=== PATIENT | female | born 1945 | race African-American/Black ===

== ENCOUNTER 2017-05-15 09:59 | Emergency (ER) | payer MEDICARE, MEDICAID ==
[~2017-05-15] VITALS: Ht 167.6 cm; Wt 58.0 kg
[2017-05-15] MEDS ORDERED: HYDROCODONE/ACETAMINOPHEN 10/325MG TABLET PO ONE (12:00)
[2017-05-15] MEDS ORDERED: IBUPROFEN 600MG TABLET PO ONE (12:00)
[2017-05-15 13:50] VITALS: BP 123/72
== END 2017-05-15 13:54 | disposition home or self-care (01) ==
LOC: ER 12:10
DX: S29.012A Strain of muscle and tendon of back wall of thorax, initial encounter (principal); M85.80 Other specified disorders of bone density and structure, unspecified site; R03.0 Elevated blood-pressure reading, without diagnosis of hypertension; J45.909 Unspecified asthma, uncomplicated; W18.2XXA Fall in (into) shower or empty bathtub, initial encounter; Y93.E1 Activity, personal bathing and showering; Y92.091 Bathroom in other non-institutional residence as the place of occurrence of the external cause
CPT/HCPCS: 72070; 99284

== ENCOUNTER 2017-05-16 08:02 | Emergency (ER) | payer MEDICARE, MEDICAID ==
[~2017-05-16] VITALS: Ht 162.6 cm; Wt 55.0 kg
[2017-05-16] MEDS ORDERED: SODIUM CHLORIDE 0.9% 1,000 ML IV ONE (08:24)
[2017-05-16] MEDS ORDERED: ONDANSETRON HCL 4MG/2ML VIAL IV STA (08:24)
[2017-05-16] MEDS: MORPHINE SULFATE 4 MG/ML CPJ (NOT FOR IM USE) IV PRN ×2 (08:31→11:45)
[2017-05-16 08:49] LABS: CLARITY URINE CLEAR (CLEAR); COLOR URINE YELLOW (YELLOW); KETONES URINE 3+ (NEGATIVE); LEUKOCYTE ESTERASE URINE 2+ (NEGATIVE); NITRITE URINE NEGATIVE (NEGATIVE); OCCULT BLOOD URINE TRACE (NEGATIVE); PH URINE 6.5 (4.5-8.0); PROTEIN URINE NEGATIVE (NEGATIVE); SPECIFIC GRAVITY URINE 1.017 (1.005-1.030); UROBILINOGEN URINE 0.2 E.U./dL (0.2-1.0)
[2017-05-16 09:09] LABS: *AMPHETAMINES SCREEN URINE NEGATIVE (NEGATIVE); *BARBITURATES SCREEN URINE NEGATIVE (NEGATIVE); *BENZODIAZEPINES SCREEN URINE NEGATIVE (NEGATIVE); *COCAINE SCREEN URINE NEGATIVE (NEGATIVE); CANNABINOID URINE SCREEN NEGATIVE (NEGATIVE); METHADONE URINE SCREEN NEGATIVE (NEGATIVE); OPIATES URINE SCREEN PRESUMTIVE POSITIVE (NEGATIVE); PHENCYCLIDINE URINE SCREEN NEGATIVE (NEGATIVE)
[2017-05-16 09:13] LABS: BASOPHILS % 0.5 % (0.0-2.0); EOSINOPHILS % 0.5 % (0.0-5.0); HEMOGLOBIN. 15.8 g/dL (12.0-16.0); MEAN CORPUSCULAR HEMOGLOBIN 31.8 pg (28.0-32.0); MEAN CORPUSCULAR VOLUME 94.4 fL (81.0-99.0); MEAN PLATELET VOLUME 8.3 fl (7.4-10.4); MONOCYTES % 4.1 % (2.0-8.0); NEUTROPHILS % 83.9 % (40.0-76.0); PLATELET 199 x1000/uL (130-400); RED BLOOD CELL COUNT 4.98 mill/uL (4.2-5.4); RED CELL DISTRIBUTION WIDTH 13.7 % (11.6-14.6)
[2017-05-16 09:21] LABS: INR 1.1; PROTHROMBIN TIME 11.4 sec
[2017-05-16 09:25] LABS: CARBON DIOXIDE 26 mEq/L (21-32); CHLORIDE 104 mEq/L (98-107)
[2017-05-16] MEDS ORDERED: LEVOFLOXACIN 750MG PREMIX 150 ML IV ONE (11:15)
[2017-05-16 12:22] VITALS: BP 132/72
== END 2017-05-16 13:06 | disposition home or self-care (01) ==
LOC: ER 08:09
DX: N39.0 Urinary tract infection, site not specified (principal); R10.9 Unspecified abdominal pain; J44.9 Chronic obstructive pulmonary disease, unspecified; J45.909 Unspecified asthma, uncomplicated; K57.90 Diverticulosis of intestine, part unspecified, without perforation or abscess without bleeding
CPT/HCPCS: 36415; 74176; 80053; 80305; 81001; 83690; 85025; 85610; 96361; 96365; 96375; 96376; 99285; J1956; J2270; J2405; J7030

== ENCOUNTER 2017-10-13 00:47 | Emergency (ER) | payer MEDICARE, MEDICAID ==
[~2017-10-13] VITALS: Ht 165.1 cm; Wt 52.0 kg
[2017-10-13] MEDS ORDERED: IPRATROPIUM BROMIDE (0.02%) 0.5MG/2.5ML NEB HHN STA (01:30)
[2017-10-13] MEDS ORDERED: PREDNISONE 20MG TABLET PO STA (01:30)
[2017-10-13] MEDS ORDERED: GUAIFENESIN/CODEINE 100-10MG/5ML UDC PO ONE (01:30)
[2017-10-13] MEDS ORDERED: ALBUTEROL (0.083%) 2.5MG/3ML NEB HHN STA (01:30)
[2017-10-13 01:48] LABS: HEMATOCRIT. 34.1 % (36.0-48.0); HEMOGLOBIN. 11.3 g/dL (12.0-16.0); MEAN CORPUSCULAR HEMOGLOBIN 32.1 pg (28.0-32.0); MEAN CORPUSCULAR VOLUME 96.6 fL (81.0-99.0); MEAN PLATELET VOLUME 7.3 fl (7.4-10.4); PLATELET 368 x1000/uL (130-400); RED BLOOD CELL COUNT 3.53 mill/uL (4.2-5.4); RED CELL DISTRIBUTION WIDTH 13.7 % (11.6-14.6)
[2017-10-13 01:55] LABS: CHLORIDE 90 mEq/L (98-107)
[2017-10-13 02:00] LABS: CARBON DIOXIDE 26 mEq/L (21-32)
[2017-10-13 02:08] LABS: BASOPHILS % 0.6 % (0.0-2.0); EOSINOPHILS % 3.7 % (0.0-5.0); LYMPHOCYTES % 11.5 % (20.0-50.0); MONOCYTES % 9.8 % (2.0-8.0); NEUTROPHILS % 74.4 % (40.0-76.0)
[2017-10-13 02:09] LABS: PLATELET ESTIMATE NORMAL
[2017-10-13] MEDS ORDERED: MORPHINE SULFATE 2 MG/ML CPJ (NOT FOR IM USE) IV ONE (03:30)
[2017-10-13] MEDS ORDERED: ACETAMINOPHEN WITH CODEINE 300/30MG TABLET PO ONE (04:00)
[2017-10-13 04:50] VITALS: BP 123/77
== END 2017-10-13 05:00 | disposition home or self-care (01) ==
LOC: ER 01:12
DX: J44.9 Chronic obstructive pulmonary disease, unspecified (principal); K12.1 Other forms of stomatitis; F17.200 Nicotine dependence, unspecified, uncomplicated; Z88.6 Allergy status to analgesic agent
CPT/HCPCS: 36415; 71010; 80048; 85025; 94640; 99285; J7512; J7611

== ENCOUNTER 2017-12-29 07:41 | Emergency (ER) | payer MEDICARE, MEDICAID ==
[~2017-12-29] VITALS: Ht 177.8 cm; Wt 50.0 kg
[2017-12-29] MEDS ORDERED: ACETAMINOPHEN 325MG TABLET PO STA (07:58)
[2017-12-29] MEDS ORDERED: METHYLPREDNISOLONE SOD SUCC 125 MG/2 ML VIAL IV STA (07:58)
[2017-12-29] MEDS ORDERED: IPRATROPIUM/ALBUTEROL 0.5-3(2.5)MG/3ML NEB HHN ONE (08:15)
[2017-12-29] MEDS ORDERED: IPRATROPIUM/ALBUTEROL 0.5-3(2.5)MG/3ML NEB ONE (08:15)
[2017-12-29 08:29] LABS: BASOPHILS % 0.3 % (0.0-2.0); EOSINOPHILS % 0.7 % (0.0-5.0); HEMATOCRIT. 37.6 % (36.0-48.0); HEMOGLOBIN. 12.6 g/dL (12.0-16.0); LYMPHOCYTES % 10.4 % (20.0-50.0); MEAN CORPUSCULAR HEMOGLOBIN 32.9 pg (28.0-32.0); MEAN CORPUSCULAR VOLUME 98.4 fL (81.0-99.0); MEAN PLATELET VOLUME 8.3 fl (7.4-10.4); MONOCYTES % 7.4 % (2.0-8.0); NEUTROPHILS % 81.2 % (40.0-76.0); PLATELET 256 x1000/uL (130-400); RED BLOOD CELL COUNT 3.83 mill/uL (4.2-5.4); RED CELL DISTRIBUTION WIDTH 15.1 % (11.6-14.6)
[2017-12-29 08:35] LABS: INR 1.1; PARTIAL THROMBOPLASTIN TIME 32.2 sec (23.4-31.0); PROTHROMBIN TIME 11.1 sec (9.4-11.6)
[2017-12-29 08:38] LABS: CHLORIDE 100 mEq/L (98-107)
[2017-12-29 08:43] LABS: TROPONIN I < 0.02 ng/mL (0.00-0.04)
[2017-12-29] MEDS ORDERED: OSELTAMIVIR 75MG CAPSULE PO ONE (09:30)
[2017-12-29 10:39] VITALS: BP 121/64
== END 2017-12-29 10:40 | disposition left against medical advice (07) ==
LOC: ER 07:54 → EDBEDREQ 09:34 → ENRESERV 10:15 → CANRESERV 10:15 → ER 10:40 → CANBEDREQ 16:22
DX: J44.1 Chronic obstructive pulmonary disease with (acute) exacerbation (principal); Z88.6 Allergy status to analgesic agent; Z90.49 Acquired absence of other specified parts of digestive tract; Z99.81 Dependence on supplemental oxygen
CPT/HCPCS: 36415; 71045; 80053; 83605; 83880; 84484; 85025; 85610; 85730; 87040; 87804; 93005; 94640; 96374; 99285; J2930; J7620

== ENCOUNTER 2019-01-16 08:29 | Inpatient (IN) | payer MEDICARE, MEDICAID ==
[~2019-01-16] VITALS: Ht 167.6 cm; Wt 47.6 kg
[2019-01-16] MEDS ORDERED: IPRATROPIUM BROMIDE (0.02%) 0.5MG/2.5ML NEB HHN STA (08:43)
[2019-01-16] MEDS ORDERED: ALBUTEROL (0.083%) 2.5MG/3ML NEB HHN STA (08:43)
[2019-01-16] MEDS ORDERED: METHYLPREDNISOLONE SOD SUCC 125 MG/2 ML VIAL IV STA (08:43)
[2019-01-16 09:17] LABS: CHLORIDE 97 mEq/L (98-107); HEMATOCRIT. 43.4 % (36.0-48.0); HEMOGLOBIN. 14.3 g/dL (12.0-16.0); MEAN PLATELET VOLUME 8.8 fl (7.4-10.4); PLATELET 144 x1000/uL (130-400); RED BLOOD CELL COUNT 4.62 mill/uL (4.2-5.4); RED CELL DISTRIBUTION WIDTH 13.4 % (11.6-14.6)
[2019-01-16 09:54] LABS: PLATELET ESTIMATE NORMAL
[2019-01-16] MEDS ORDERED: HYDROCODONE/ACETAMINOPHEN 5/325MG TABLET PO ONE (11:00)
[2019-01-16 14:28] LABS: BG BASE EXCESS 2.4 mmol/L (-2.0-2.0); BG CARBOXYHEMOGLOBIN 0.9 % (0.5-1.5); BG DEOXYHEMOGLOBIN 6.4 % (0.0-5.0); BG FRACTION INSPIRED OXYGEN 32; BG HCO3 ACT 26.7 mmol/L (22.0-26.0); BG METHEMOGLOBIN 0.2 % (0.0-1.5); BG OXYGEN SATURATION 93.5 % (92.0-98.5); BG OXYHEMOGLOBIN 92.5 % (94.0-97.0); BG PCO2 40.5 mmHg (35.0-45.0); BG PH 7.437 (7.350-7.450); BG PO2 67.1 mmHg (75.0-100.0); BG SAMPLE SITE RIGHT BRACHIAL; BG VENT MODE NASAL CANNULA
[2019-01-16 16:00] VITALS: BP 125/59
[2019-01-16 16:30] VITALS: BP 125/59
[2019-01-16] MEDS ORDERED: LEVA15HF4 IH (18:17)
[2019-01-16] MEDS ORDERED: IPRATROPIUM/ALBUTEROL 0.5-3(2.5)MG/3ML NEB HHN PRN (18:45)
[2019-01-16 20:00] VITALS: BP 123/67
[2019-01-16] MEDS: METHYLPREDNISOLONE SOD SUCC 40 MG/ML VIAL IV SCH (20:56)
[2019-01-16] MEDS: POTASSIUM CHLORIDE 20MEQ TABLET SR PO SCH (20:56)
[2019-01-16] MEDS: ENOXAPARIN 40MG/0.4ML SYR SUBCUT SCH (20:57)
[2019-01-17] VITALS: BP 143/83
[2019-01-17] MEDS: IPRATROPIUM/ALBUTEROL 0.5-3(2.5)MG/3ML NEB HHN SCH ×6 (00:46→21:18)
[2019-01-17] MEDS: LEVOFLOXACIN 500MG PREMIX 100 ML IV SCH ×2 (02:46→22:56)
[2019-01-17] MEDS: ACETAMINOPHEN 325MG TABLET PO PRN (02:53)
[2019-01-17] MEDS: METHYLPREDNISOLONE SOD SUCC 40 MG/ML VIAL IV SCH ×3 (03:10→20:18)
[2019-01-17 04:00] VITALS: BP 113/55
[2019-01-17 07:13] LABS: HEMATOCRIT. 46.3 % (36.0-48.0); HEMOGLOBIN. 15.3 g/dL (12.0-16.0); MEAN CORPUSCULAR HEMOGLOBIN 31.2 pg (28.0-32.0); MEAN CORPUSCULAR VOLUME 94.6 fL (81.0-99.0); MEAN PLATELET VOLUME 9.6 fl (7.4-10.4); PLATELET 162 x1000/uL (130-400); RED CELL DISTRIBUTION WIDTH 13.4 % (11.6-14.6)
[2019-01-17 08:00] VITALS: BP 144/72
[2019-01-17] MEDS: BENZONATATE 100MG CAPSULE PO PRN ×2 (08:08→16:12)
[2019-01-17] MEDS: POTASSIUM CHLORIDE 20MEQ TABLET SR PO SCH ×3 (08:09→16:12)
[2019-01-17 09:50] LABS: CHLORIDE 101 mEq/L (98-107)
[2019-01-17 09:59] LABS: PHOSPHORUS 1.2 mg/dL (2.5-4.9)
[2019-01-17 12:00] VITALS: BP 111/68
[2019-01-17] MEDS: DEXT 5%/0.45% NACL 1000ML 1,000 ML IV SCH ×2 (12:34→21:43)
[2019-01-17 16:00] VITALS: BP 139/74
[2019-01-17 18:13] LABS: PLATELET ESTIMATE NORMAL
[2019-01-17 20:02] VITALS: BP 135/85
[2019-01-17] MEDS: GUAIFENESIN 600MG ER TABLET PO SCH (20:18)
[2019-01-17] MEDS: ENOXAPARIN 40MG/0.4ML SYR SUBCUT SCH (20:18)
[2019-01-17] MEDS: BUSPIRONE HCL 5MG TABLET PO PRN (21:41)
[2019-01-18] VITALS: BP 150/69
[2019-01-18 00:35] LABS: CLARITY URINE CLEAR (CLEAR); COLOR URINE YELLOW (YELLOW); KETONES URINE NEGATIVE (NEGATIVE); LEUKOCYTE ESTERASE URINE NEGATIVE (NEGATIVE); NITRITE URINE NEGATIVE (NEGATIVE); OCCULT BLOOD URINE TRACE (NEGATIVE); PH URINE 6.5 (4.5-8.0); PROTEIN URINE 1+ (NEGATIVE); UROBILINOGEN URINE 0.2 E.U./dL (0.2-1.0)
[2019-01-18 00:55] LABS: *AMPHETAMINES SCREEN URINE NEGATIVE (NEGATIVE); *BARBITURATES SCREEN URINE NEGATIVE (NEGATIVE); *BENZODIAZEPINES SCREEN URINE NEGATIVE (NEGATIVE); *COCAINE SCREEN URINE NEGATIVE (NEGATIVE); CANNABINOID URINE SCREEN NEGATIVE (NEGATIVE); METHADONE URINE SCREEN NEGATIVE (NEGATIVE); OPIATES URINE SCREEN PRESUMTIVE POSITIVE (NEGATIVE); PHENCYCLIDINE URINE SCREEN NEGATIVE (NEGATIVE)
[2019-01-18] MEDS: IPRATROPIUM/ALBUTEROL 0.5-3(2.5)MG/3ML NEB HHN SCH ×6 (01:20→21:52)
[2019-01-18 04:00] VITALS: BP 137/70
[2019-01-18] MEDS: DEXT 5%/0.45% NACL 1000ML 1,000 ML IV SCH ×2 (04:57→21:09)
[2019-01-18] MEDS: METHYLPREDNISOLONE SOD SUCC 40 MG/ML VIAL IV SCH ×3 (04:57→21:11)
[2019-01-18 07:51] LABS: HEMATOCRIT. 43.5 % (36.0-48.0); HEMOGLOBIN. 14.3 g/dL (12.0-16.0); MEAN CORPUSCULAR HEMOGLOBIN 31.1 pg (28.0-32.0); MEAN CORPUSCULAR VOLUME 94.4 fL (81.0-99.0); MEAN PLATELET VOLUME 9.3 fl (7.4-10.4); PLATELET 166 x1000/uL (130-400); RED BLOOD CELL COUNT 4.61 mill/uL (4.2-5.4); RED CELL DISTRIBUTION WIDTH 13.2 % (11.6-14.6)
[2019-01-18 08:00] VITALS: BP 138/62
[2019-01-18 08:46] LABS: CHLORIDE 104 mEq/L (98-107)
[2019-01-18 08:52] LABS: PHOSPHORUS 1.5 mg/dL (2.5-4.9)
[2019-01-18] MEDS: ACETAMINOPHEN 325MG TABLET PO PRN ×2 (09:10→21:06)
[2019-01-18] MEDS: POTASSIUM CHLORIDE 20MEQ TABLET SR PO SCH ×3 (09:10→17:55)
[2019-01-18] MEDS: GUAIFENESIN 600MG ER TABLET PO SCH ×2 (09:10→21:03)
[2019-01-18 10:08] LABS: PLATELET ESTIMATE NORMAL
[2019-01-18 12:00] VITALS: BP 130/71
[2019-01-18 16:00] VITALS: BP 153/71
[2019-01-18 20:00] VITALS: BP 158/74
[2019-01-18] MEDS: ENOXAPARIN 40MG/0.4ML SYR SUBCUT SCH (21:03)
[2019-01-18] MEDS: BUSPIRONE HCL 5MG TABLET PO PRN (22:18)
[2019-01-18] MEDS: UBIDECARENONE/VITAMIN E 50MG PO SCH (23:00)
[2019-01-19] VITALS: BP 132/68
[2019-01-19] MEDS: LEVOFLOXACIN 500MG PREMIX 100 ML IV SCH ×2 (00:31→23:10)
[2019-01-19] MEDS: IPRATROPIUM/ALBUTEROL 0.5-3(2.5)MG/3ML NEB HHN SCH ×6 (01:31→20:47)
[2019-01-19 04:00] VITALS: BP 147/78
[2019-01-19] MEDS: METHYLPREDNISOLONE SOD SUCC 40 MG/ML VIAL IV SCH ×3 (04:48→20:57)
[2019-01-19 08:00] VITALS: BP 143/72
[2019-01-19] MEDS: GUAIFENESIN 600MG ER TABLET PO SCH (09:00)
[2019-01-19] MEDS: UBIDECARENONE/VITAMIN E 50MG PO SCH (09:00)
[2019-01-19] MEDS: POTASSIUM CHLORIDE 20MEQ TABLET SR PO SCH ×3 (09:13→17:10)
[2019-01-19] MEDS: ACETAMINOPHEN 325MG TABLET PO PRN (09:16)
[2019-01-19 15:45] LABS: BASOPHILS % 0.1 % (0.0-2.0); HEMOGLOBIN. 15.3 g/dL (12.0-16.0); LYMPHOCYTES % 7.4 % (20.0-50.0); MEAN CORPUSCULAR HEMOGLOBIN 31.4 pg (28.0-32.0); MEAN CORPUSCULAR VOLUME 94.4 fL (81.0-99.0); MEAN PLATELET VOLUME 9.1 fl (7.4-10.4); MONOCYTES % 8.1 % (2.0-8.0); NEUTROPHILS % 84.4 % (40.0-76.0); PLATELET 202 x1000/uL (130-400); RED BLOOD CELL COUNT 4.88 mill/uL (4.2-5.4); RED CELL DISTRIBUTION WIDTH 13.5 % (11.6-14.6)
[2019-01-19 15:58] LABS: CHLORIDE 100 mEq/L (98-107)
[2019-01-19 16:04] LABS: PHOSPHORUS 2.2 mg/dL (2.5-4.9)
[2019-01-19 20:00] VITALS: BP 147/75
[2019-01-19] MEDS: ENOXAPARIN 40MG/0.4ML SYR SUBCUT SCH (21:18)
[2019-01-19] MEDS: BUSPIRONE HCL 5MG TABLET PO PRN (21:19)
[2019-01-19] MEDS: DEXT 5%/0.45% NACL 1000ML 1,000 ML IV SCH (21:21)
[2019-01-19] MEDS: CYPROHEPTADINE HCL 4 MG TABLET PO SCH (23:29)
[2019-01-20] VITALS: BP 136/82
[2019-01-20] MEDS: IPRATROPIUM/ALBUTEROL 0.5-3(2.5)MG/3ML NEB HHN SCH ×6 (00:15→20:02)
[2019-01-20] MEDS: ACETAMINOPHEN 325MG TABLET PO PRN ×2 (02:34→14:06)
[2019-01-20 04:00] VITALS: BP 142/78
[2019-01-20] MEDS: METHYLPREDNISOLONE SOD SUCC 40 MG/ML VIAL IV SCH ×3 (04:10→20:54)
[2019-01-20] MEDS: CYPROHEPTADINE HCL 4 MG TABLET PO SCH ×3 (05:37→21:05)
[2019-01-20 08:00] VITALS: BP 147/83
[2019-01-20] MEDS: UBIDECARENONE/VITAMIN E 50MG PO SCH (09:00)
[2019-01-20] MEDS: POTASSIUM CHLORIDE 20MEQ TABLET SR PO SCH (09:15)
[2019-01-20 12:00] VITALS: BP 143/85
[2019-01-20 16:00] VITALS: BP 137/72
[2019-01-20] MEDS: DEXT 5%/0.45% NACL 1000ML 1,000 ML IV SCH (17:30)
[2019-01-20 20:00] VITALS: BP 133/66
[2019-01-20] MEDS: ENOXAPARIN 40MG/0.4ML SYR SUBCUT SCH (21:05)
[2019-01-20] MEDS: BUSPIRONE HCL 5MG TABLET PO PRN (21:05)
[2019-01-20] MEDS: LEVOFLOXACIN 500MG PREMIX 100 ML IV SCH (22:50)
[2019-01-21] VITALS: BP 138/74
[2019-01-21] MEDS: DEXT 5%/0.45% NACL 1000ML 1,000 ML IV SCH (03:30)
[2019-01-21 04:00] VITALS: BP 140/86
[2019-01-21] MEDS: IPRATROPIUM/ALBUTEROL 0.5-3(2.5)MG/3ML NEB HHN SCH ×2 (04:09→08:52)
[2019-01-21] MEDS: METHYLPREDNISOLONE SOD SUCC 40 MG/ML VIAL IV SCH (04:40)
[2019-01-21] MEDS: CYPROHEPTADINE HCL 4 MG TABLET PO SCH (05:53)
[2019-01-21 08:00] VITALS: BP 138/63
[2019-01-21] MEDS: UBIDECARENONE/VITAMIN E 50MG PO SCH (09:00)
[2019-01-21 10:14] VITALS: BP 138/63
== END 2019-01-21 12:05 | disposition home or self-care (01) | DRG 133 ==
LOC: ER 08:29 → 8WST 10:16 → EDBEDREQ 10:20 → ENRESERV 14:59
PROC: 5A09357 Assistance with Respiratory Ventilation, Less than 24 Consecutive Hours, Continuous Positive Airway Pressure (ICD-10-PCS; principal; 2019-01-16)
DX: J96.20 Acute and chronic respiratory failure, unspecified whether with hypoxia or hypercapnia (principal); J18.0 Bronchopneumonia, unspecified organism; E11.9 Type 2 diabetes mellitus without complications; E87.1 Hypo-osmolality and hyponatremia; E83.51 Hypocalcemia; J44.0 Chronic obstructive pulmonary disease with (acute) lower respiratory infection; M19.90 Unspecified osteoarthritis, unspecified site; J44.1 Chronic obstructive pulmonary disease with (acute) exacerbation; G89.29 Other chronic pain; M54.5 Low back pain; F17.200 Nicotine dependence, unspecified, uncomplicated; J20.9 Acute bronchitis, unspecified; F41.9 Anxiety disorder, unspecified; Z91.011 Allergy to milk products; Z82.49 Family history of ischemic heart disease and other diseases of the circulatory system; Z88.8 Allergy status to other drugs, medicaments and biological substances; Z79.899 Other long term (current) drug therapy; Z80.9 Family history of malignant neoplasm, unspecified; E87.6 Hypokalemia
CPT/HCPCS: 36415; 36600; 71045; 71250; 80048; 80305; 82375; 82805; 83735; 83880; 84100; 84484; 85651; 87070; 87804; 93005; 93970; 94640; 96374; 97162; 97166; 99285; J1650; J1956; J2920; J2930; J7611; J7620

== ENCOUNTER 2019-12-21 07:20 | Inpatient (IN) | payer MEDICARE, MEDICAID ==
[~2019-12-21] VITALS: Ht 156.5 cm; Wt 65.1 kg
[~2019-12-21 07:20] MED LIST: LEVA15HF4 IH
[2019-12-21] MEDS ORDERED: MAGNESIUM 2 G PREMIX 50 ML IV STA (07:31)
[2019-12-21] MEDS ORDERED: IPRATROPIUM BROMIDE (0.02%) 0.5MG/2.5ML NEB HHN STA (07:31)
[2019-12-21] MEDS ORDERED: METHYLPREDNISOLONE SOD SUCC 125 MG/2 ML VIAL IV STA (07:31)
[2019-12-21] MEDS ORDERED: ALBUTEROL (0.083%) 2.5MG/3ML NEB HHN STA (07:31)
[2019-12-21] MEDS ORDERED: ALBUTEROL (0.083%) 2.5MG/3ML NEB ONE (07:36)
[2019-12-21] MEDS ORDERED: IPRATROPIUM BROMIDE (0.02%) 0.5MG/2.5ML NEB ONE (07:36)
[2019-12-21 08:08] LABS: BASOPHILS % 0.3 % (0.0-2.0); EOSINOPHILS % 0.6 % (0.0-5.0); HEMATOCRIT. 49.3 % (36.0-48.0); HEMOGLOBIN. 16.4 g/dL (12.0-16.0); LYMPHOCYTES % 10.4 % (20.0-50.0); MEAN CORPUSCULAR HEMOGLOBIN 31.8 pg (28.0-32.0); MEAN CORPUSCULAR VOLUME 95.3 fL (81.0-99.0); MEAN PLATELET VOLUME 8.1 fl (7.4-10.4); MONOCYTES % 6.1 % (2.0-8.0); NEUTROPHILS % 82.6 % (40.0-76.0); PLATELET 189 x1000/uL (130-400); RED BLOOD CELL COUNT 5.17 mill/uL (4.2-5.4); RED CELL DISTRIBUTION WIDTH 15.4 % (11.6-14.6)
[2019-12-21 08:16] LABS: INR 1.1; PROTHROMBIN TIME 11.9 sec (9.6-11.0)
[2019-12-21 08:18] LABS: CHLORIDE 104 mEq/L (98-107)
[2019-12-21] MEDS ORDERED: SODIUM CHLORIDE 0.9% 1,000 ML IV ONE (08:36)
[2019-12-21] MEDS ORDERED: LEVOFLOXACIN 500MG PREMIX 100 ML IV ONE (08:45)
[2019-12-21 09:01] LABS: BG BASE EXCESS -4.2 mmol/L (-2.0-2.0); BG BILEVEL POS AIRWAY PRESSURE 15/5; BG CARBOXYHEMOGLOBIN 4.6 % (0.5-1.5); BG DEOXYHEMOGLOBIN 1.9 % (0.0-5.0); BG FRACTION INSPIRED OXYGEN 45; BG METHEMOGLOBIN 0.3 % (0.0-1.5); BG OXYHEMOGLOBIN 93.2 % (94.0-97.0); BG PCO2 44.2 mmHg (35.0-45.0); BG PH 7.314 (7.350-7.450); BG PO2 112.8 mmHg (75.0-100.0); BG SAMPLE SITE RIGHT BRACHIAL; BG TOTAL HEMOGLOBIN 15.5 g/dL (12.0-18.0); BG VENT MODE MASK - BIPAP
[2019-12-21 10:11] LABS: CLARITY URINE CLEAR (CLEAR); COLOR URINE YELLOW (YELLOW); KETONES URINE 1+ (NEGATIVE); LEUKOCYTE ESTERASE URINE NEGATIVE (NEGATIVE); NITRITE URINE NEGATIVE (NEGATIVE); OCCULT BLOOD URINE 2+ (NEGATIVE); PROTEIN URINE 2+ (NEGATIVE); SPECIFIC GRAVITY URINE 1.011 (1.005-1.030); UROBILINOGEN URINE 0.2 E.U./dL (0.2-1.0)
[2019-12-21] MEDS ORDERED: CLONIDINE 0.1MG TABLET PO PRN (11:15)
[2019-12-21] MEDS ORDERED: MAGNESIUM/ALUMINUM HYDROXIDE/SIMETHICONE 30ML UDC PO PRN (11:15)
[2019-12-21] MEDS ORDERED: GUAIFENESIN 200MG/10ML SUGAR FREE UDC PO PRN (11:15)
[2019-12-21] MEDS ORDERED: DIPHENHYDRAMINE 50MG/ML VIAL IV PRN (11:15)
[2019-12-21] MEDS ORDERED: ACETAMINOPHEN 325MG TABLET PO PRN (11:15)
[2019-12-21] MEDS ORDERED: DOCUSATE SODIUM 100MG CAPSULE PO PRN (11:15)
[2019-12-21] MEDS: ONDANSETRON HCL 4MG/2ML INJ IV PRN ×2 (12:11→18:07)
[2019-12-21] MEDS: MORPHINE SULFATE 2 MG/ML CPJ (NOT FOR IM USE) IV PRN ×2 (12:11→18:07)
[2019-12-21] MEDS: SODIUM CHLORIDE 0.9% INJ 3ML FLUSH IVF SCH (14:00)
[2019-12-21] MEDS: IPRATROPIUM/ALBUTEROL 0.5-3(2.5)MG/3ML NEB HHN PRN (18:08)
[2019-12-21] MEDS: LORAZEPAM 2MG/ML CPJ IV PRN ×2 (19:39→21:02)
[2019-12-21 20:42] LABS: CREATINE KINASE 262 IU/L (26-192)
[2019-12-21 20:43] LABS: CREATINE KINASE MB FRACTION 4.5 ng/mL (0.5-3.6)
[2019-12-21] MEDS: HYDROCODONE/ACETAMINOPHEN 10/325MG TABLET PO PRN (21:02)
[2019-12-21] MEDS ORDERED: HYDRALAZINE 20MG/ML VIAL IV PRN (23:02)
[2019-12-21 23:20] VITALS: BP 134/83
[2019-12-22] VITALS (12 sets, daily range): BP systolic 102–152; BP diastolic 64–97
[2019-12-22 00:32] LABS: CREATINE KINASE 245 IU/L (26-192)
[2019-12-22 00:33] LABS: CREATINE KINASE MB FRACTION 3.9 ng/mL (0.5-3.6)
[2019-12-22] MEDS: IPRATROPIUM/ALBUTEROL 0.5-3(2.5)MG/3ML NEB HHN PRN ×2 (00:53→04:01)
[2019-12-22] MEDS: MORPHINE SULFATE 2 MG/ML CPJ (NOT FOR IM USE) IV PRN ×3 (00:59→11:59)
[2019-12-22] MEDS: HYDROCODONE/ACETAMINOPHEN 10/325MG TABLET PO PRN ×2 (04:06→20:41)
[2019-12-22] MEDS: LORAZEPAM 2MG/ML CPJ IV PRN ×2 (04:11→17:05)
[2019-12-22] MEDS: SODIUM CHLORIDE 0.9% INJ 3ML FLUSH IVF SCH ×3 (05:40→22:18)
[2019-12-22 07:30] LABS: BASOPHILS % 0.2 % (0.0-2.0); HEMOGLOBIN. 14.1 g/dL (12.0-16.0); LYMPHOCYTES % 8.7 % (20.0-50.0); MEAN CORPUSCULAR HEMOGLOBIN 31.5 pg (28.0-32.0); MEAN PLATELET VOLUME 8.6 fl (7.4-10.4); MONOCYTES % 12.8 % (2.0-8.0); NEUTROPHILS % 78.3 % (40.0-76.0); PLATELET 175 x1000/uL (130-400); RED BLOOD CELL COUNT 4.48 mill/uL (4.2-5.4); RED CELL DISTRIBUTION WIDTH 15.3 % (11.6-14.6)
[2019-12-22] MEDS: ENOXAPARIN 40MG/0.4ML SYR SUBCUT SCH (07:30)
[2019-12-22 07:34] LABS: CHLORIDE 103 mEq/L (98-107)
[2019-12-22 08:57] LABS: BG BASE EXCESS -7.5 mmol/L (-2.0-2.0); BG CARBOXYHEMOGLOBIN 1.6 % (0.5-1.5); BG DEOXYHEMOGLOBIN 3.5 % (0.0-5.0); BG FRACTION INSPIRED OXYGEN 45; BG HCO3 ACT 21.4 mmol/L (22.0-26.0); BG METHEMOGLOBIN 0.2 % (0.0-1.5); BG OXYGEN SATURATION 96.4 % (92.0-98.5); BG OXYHEMOGLOBIN 94.7 % (94.0-97.0); BG PCO2 57.8 mmHg (35.0-45.0); BG PH 7.187 (7.350-7.450); BG PO2 93.6 mmHg (75.0-100.0); BG SAMPLE SITE RIGHT BRACHIAL; BG TOTAL HEMOGLOBIN 14.4 g/dL (12.0-18.0); BG VENT MODE MASK - BIPAP; BG VENT RATE 20 set
[2019-12-22] MEDS ORDERED: LEVOFLOXACIN 500MG PREMIX 100 ML IV SCH (11:30)
[2019-12-22 12:30] LABS: BG BASE EXCESS 2.2 mmol/L (-2.0-2.0); BG BILEVEL POS AIRWAY PRESSURE 15/5; BG DEOXYHEMOGLOBIN 2.7 % (0.0-5.0); BG FRACTION INSPIRED OXYGEN 45; BG HCO3 ACT 32.6 mmol/L (22.0-26.0); BG METHEMOGLOBIN 0.1 % (0.0-1.5); BG OXYGEN SATURATION 97.3 % (92.0-98.5); BG OXYHEMOGLOBIN 96.2 % (94.0-97.0); BG PCO2 79.4 mmHg (35.0-45.0); BG PH 7.231 (7.350-7.450); BG SAMPLE SITE RIGHT BRACHIAL; BG TOTAL HEMOGLOBIN 15.1 g/dL (12.0-18.0); BG VENT MODE MASK - BIPAP; BG VENT RATE 20 set
[2019-12-22] MEDS: IPRATROPIUM/ALBUTEROL 0.5-3(2.5)MG/3ML NEB HHN SCH ×2 (14:10→21:05)
[2019-12-22] MEDS ORDERED: METHYLPREDNISOLONE SOD SUCC 125 MG/2 ML VIAL IV NR (19:00)
[2019-12-23] VITALS (13 sets, daily range): BP systolic 120–144; BP diastolic 57–85
[2019-12-23] MEDS: IPRATROPIUM/ALBUTEROL 0.5-3(2.5)MG/3ML NEB HHN SCH ×7 (00:25→23:50)
[2019-12-23] MEDS: HYDROCODONE/ACETAMINOPHEN 10/325MG TABLET PO PRN ×4 (02:21→22:34)
[2019-12-23] MEDS: LORAZEPAM 2MG/ML CPJ IV PRN ×3 (03:50→20:01)
[2019-12-23] MEDS: METHYLPREDNISOLONE SOD SUCC 40 MG/ML VIAL IV SCH ×3 (03:50→20:03)
[2019-12-23] MEDS: SODIUM CHLORIDE 0.9% INJ 3ML FLUSH IVF SCH ×3 (05:47→21:54)
[2019-12-23] MEDS: ENOXAPARIN 40MG/0.4ML SYR SUBCUT SCH (07:22)
[2019-12-23 07:31] LABS: BASOPHILS % 0.1 % (0.0-2.0); HEMATOCRIT. 42.7 % (36.0-48.0); HEMOGLOBIN. 14.2 g/dL (12.0-16.0); LYMPHOCYTES % 8.6 % (20.0-50.0); MEAN CORPUSCULAR HEMOGLOBIN 31.7 pg (28.0-32.0); MEAN CORPUSCULAR VOLUME 95.1 fL (81.0-99.0); MEAN PLATELET VOLUME 8.6 fl (7.4-10.4); MONOCYTES % 2.5 % (2.0-8.0); NEUTROPHILS % 88.8 % (40.0-76.0); PLATELET 138 x1000/uL (130-400); RED BLOOD CELL COUNT 4.49 mill/uL (4.2-5.4); RED CELL DISTRIBUTION WIDTH 14.7 % (11.6-14.6)
[2019-12-23 08:08] LABS: CHLORIDE 99 mEq/L (98-107)
[2019-12-23 09:11] LABS: BG BASE EXCESS 4.4 mmol/L (-2.0-2.0); BG CARBOXYHEMOGLOBIN 0.9 % (0.5-1.5); BG DEOXYHEMOGLOBIN 7.7 % (0.0-5.0); BG FRACTION INSPIRED OXYGEN 40; BG HCO3 ACT 31.6 mmol/L (22.0-26.0); BG METHEMOGLOBIN 0.2 % (0.0-1.5); BG OXYGEN SATURATION 92.2 % (92.0-98.5); BG OXYHEMOGLOBIN 91.2 % (94.0-97.0); BG PCO2 57.4 mmHg (35.0-45.0); BG PH 7.359 (7.350-7.450); BG PO2 61.7 mmHg (75.0-100.0); BG SAMPLE SITE LEFT BRACHIAL; BG VENT MODE MASK - VENTI
[2019-12-23] MEDS ORDERED: LEVOFLOXACIN 500MG PREMIX 100 ML IV SCH (12:00)
[2019-12-23] MEDS ORDERED: GUAIFENESIN/DM 600MG/30MG ER TAB 12HR PO PRN (15:00)
[2019-12-23] MEDS: MONTELUKAST SODIUM 10MG TABLET PO SCH (18:01)
[2019-12-23] MEDS: FLUTICASONE PROPIONATE 50MCG/SPRAY BOTTLE BOTHNSTRLS SCH (20:02)
[2019-12-24] VITALS (23 sets, daily range): BP systolic 110–150; BP diastolic 58–113
[2019-12-24] MEDS: LORAZEPAM 2MG/ML CPJ IV PRN ×4 (00:10→19:32)
[2019-12-24] MEDS: METHYLPREDNISOLONE SOD SUCC 40 MG/ML VIAL IV SCH ×2 (02:48→11:13)
[2019-12-24] MEDS: IPRATROPIUM/ALBUTEROL 0.5-3(2.5)MG/3ML NEB HHN SCH ×5 (04:11→21:19)
[2019-12-24] MEDS: HYDROCODONE/ACETAMINOPHEN 10/325MG TABLET PO PRN ×4 (04:29→23:35)
[2019-12-24] MEDS: SODIUM CHLORIDE 0.9% INJ 3ML FLUSH IVF SCH ×2 (06:15→14:00)
[2019-12-24] MEDS: ENOXAPARIN 40MG/0.4ML SYR SUBCUT SCH (07:31)
[2019-12-24] MEDS: FLUTICASONE PROPIONATE 50MCG/SPRAY BOTTLE BOTHNSTRLS SCH (07:33)
[2019-12-24] MEDS: LEVOFLOXACIN 500MG TABLET PO SCH (10:31)
[2019-12-24] MEDS: MONTELUKAST SODIUM 10MG TABLET PO SCH (16:43)
[2019-12-25] VITALS (8 sets, daily range): BP systolic 123–149; BP diastolic 61–93
[2019-12-25] MEDS: IPRATROPIUM/ALBUTEROL 0.5-3(2.5)MG/3ML NEB HHN SCH ×3 (00:23→09:21)
[2019-12-25] MEDS: PREDNISONE 20MG TABLET PO SCH ×2 (00:45→07:54)
[2019-12-25] MEDS: FLUTICASONE PROPIONATE 50MCG/SPRAY BOTTLE BOTHNSTRLS SCH ×2 (00:45→09:00)
[2019-12-25] MEDS: SODIUM CHLORIDE 0.9% INJ 3ML FLUSH IVF SCH ×2 (00:46→06:00)
[2019-12-25] MEDS: LORAZEPAM 2MG/ML CPJ IV PRN (02:35)
[2019-12-25] MEDS: ENOXAPARIN 40MG/0.4ML SYR SUBCUT SCH (08:34)
[2019-12-25] MEDS: LEVOFLOXACIN 500MG TABLET PO SCH (11:08)
== END 2019-12-25 11:33 | disposition home or self-care (01) | DRG 140 ==
LOC: ER 07:22 → 3WST 08:00 → ENRESERV 21:41
PROVIDERS: ADMIT Internal Medicine; ATTEND Internal Medicine
PROC: 5A09357 Assistance with Respiratory Ventilation, Less than 24 Consecutive Hours, Continuous Positive Airway Pressure (ICD-10-PCS; principal; 2019-12-21)
PROC: 5A09457 Assistance with Respiratory Ventilation, 24-96 Consecutive Hours, Continuous Positive Airway Pressure (ICD-10-PCS; 2019-12-22)
DX: J43.9 Emphysema, unspecified (principal); J69.0 Pneumonitis due to inhalation of food and vomit; J96.01 Acute respiratory failure with hypoxia; G93.41 Metabolic encephalopathy; I27.20 Pulmonary hypertension, unspecified; R65.10 Systemic inflammatory response syndrome (SIRS) of non-infectious origin without acute organ dysfunction; J20.9 Acute bronchitis, unspecified; R74.0 Nonspecific elevation of levels of transaminase and lactic acid dehydrogenase [LDH]; F17.210 Nicotine dependence, cigarettes, uncomplicated; I10 Essential (primary) hypertension; J00 Acute nasopharyngitis [common cold]; K21.9 Gastro-esophageal reflux disease without esophagitis; Z88.8 Allergy status to other drugs, medicaments and biological substances; Z79.899 Other long term (current) drug therapy
CPT/HCPCS: 36415; 36600; 71045; 80048; 80053; 81003; 82375; 82550; 82553; 82805; 83605; 83880; 84145; 84484; 85025; 93005; 93970; 94640; 94644; 94660; 96365; 97162; 99291; J1650; J1956; J2060; J2270; J2405; J2920; J2930; J3475; J7030; J7512

== ENCOUNTER 2022-05-15 06:22 | Inpatient (IN) | payer MEDICARE, MEDICAID ==
[~2022-05-15] VITALS: Ht 165.1 cm; Wt 49.9 kg
[~2022-05-15 06:22] MED LIST changes: +AMLO10TA80 PO; +FLUT1BLS3 INH; +FURO20TA4 PO; +HYDR-4009 PO; +HYDR-4135 PO; +LEVO250T43 MT; +OXYC1TAB5 PO; +SPIR25TA PO; +TOPUD PO
[2022-05-15] MEDS ORDERED: METHYLPREDNISOLONE SOD SUCC 125 MG/2 ML VIAL IV ONE (06:30)
[2022-05-15] MEDS ORDERED: IPRATROPIUM/ALBUTEROL 0.5-3(2.5)MG/3ML NEB HHN ONE (06:30)
[2022-05-15] MEDS ORDERED: KETOROLAC 30MG/ML VIAL IV ONE (06:45)
[2022-05-15] MEDS: HYDROCODONE/ACETAMINOPHEN 5/325MG TABLET PO ONE ×2 (06:45→10:48)
[2022-05-15 07:10] LABS: BASOPHILS % 0.3 % (0.0-2.0); EOSINOPHILS % 0.7 % (0.0-5.0); HEMATOCRIT. 41.9 % (36.0-48.0); HEMOGLOBIN. 13.7 g/dL (12.0-16.0); LYMPHOCYTES % 19.9 % (20.0-50.0); MEAN CORPUSCULAR HEMOGLOBIN 31.2 pg (28.0-32.0); MEAN CORPUSCULAR VOLUME 95.2 fL (81.0-99.0); MONOCYTES % 5.4 % (2.0-8.0); NEUTROPHILS % 73.7 % (40.0-76.0); PLATELET 226 x1000/uL (130-400); RED CELL DISTRIBUTION WIDTH 14.2 % (11.6-14.6)
[2022-05-15 07:16] LABS: CHLORIDE 106 mEq/L (98-107)
[2022-05-15 07:17] LABS: PROTHROMBIN TIME 10.8 sec (9.6-11.0)
[2022-05-15] MEDS ORDERED: HYDROCODONE/ACETAMINOPHEN 5/325MG TABLET PO ONE (10:33)
[2022-05-15] MEDS ORDERED: NALOXONE HCL 0.4MG/ML VIAL IV PRN (12:30)
[2022-05-15] MEDS: HYDROCODONE/ACETAMINOPHEN 10/325MG TABLET PO PRN ×2 (13:02→18:28)
[2022-05-15] MEDS: METHYLPREDNISOLONE SOD SUCC 40 MG/ML VIAL IV SCH ×2 (13:15→22:14)
[2022-05-15] MEDS: FAMOTIDINE 20MG TABLET PO SCH (13:15)
[2022-05-15] MEDS: FUROSEMIDE 40MG/4ML VIAL IVP SCH (13:15)
[2022-05-15 15:45] VITALS: BP 160/107
[2022-05-15 16:00] VITALS: BP 139/95
[2022-05-15 18:01] VITALS: BP 126/97
[2022-05-15 20:00] VITALS: BP 134/77
[2022-05-15] MEDS: IPRATROPIUM/ALBUTEROL 0.5-3(2.5)MG/3ML NEB HHN SCH ×2 (20:47→23:42)
[2022-05-15 22:00] VITALS: BP 122/84
[2022-05-15] MEDS: ZOLPIDEM TARTRATE 5MG TABLET PO PRN (22:13)
[2022-05-16] VITALS (14 sets, daily range): BP systolic 124–157; BP diastolic 67–90
[2022-05-16] MEDS: HYDROCODONE/ACETAMINOPHEN 10/325MG TABLET PO PRN ×5 (00:42→21:25)
[2022-05-16] MEDS: IPRATROPIUM/ALBUTEROL 0.5-3(2.5)MG/3ML NEB HHN SCH ×5 (04:12→20:48)
[2022-05-16] MEDS: METHYLPREDNISOLONE SOD SUCC 40 MG/ML VIAL IV SCH ×3 (06:44→21:28)
[2022-05-16] MEDS: FUROSEMIDE 40MG/4ML VIAL IVP SCH (09:01)
[2022-05-16] MEDS: FAMOTIDINE 20MG TABLET PO SCH (09:01)
[2022-05-16] MEDS ORDERED: NALOXONE HCL 0.4MG/ML VIAL IV PRN (12:15)
[2022-05-16 14:49] LABS: HEMATOCRIT. 39.3 % (36.0-48.0); HEMOGLOBIN. 12.9 g/dL (12.0-16.0); MEAN CORPUSCULAR HEMOGLOBIN 31.1 pg (28.0-32.0); MEAN CORPUSCULAR VOLUME 95.2 fL (81.0-99.0); MEAN PLATELET VOLUME 7.9 fl (7.4-10.4); PLATELET 218 x1000/uL (130-400); RED BLOOD CELL COUNT 4.13 mill/uL (4.2-5.4); RED CELL DISTRIBUTION WIDTH 14.1 % (11.6-14.6)
[2022-05-16 15:35] LABS: CHLORIDE 102 mEq/L (98-107)
[2022-05-16 17:34] LABS: PLATELET ESTIMATE NORMAL
[2022-05-16] MEDS: ENOXAPARIN 30MG/0.3ML SYR SUBCUT SCH (21:28)
[2022-05-16] MEDS: ZOLPIDEM TARTRATE 5MG TABLET PO PRN (23:04)
[2022-05-17] VITALS (12 sets, daily range): BP systolic 121–153; BP diastolic 39–97
[2022-05-17] MEDS: IPRATROPIUM/ALBUTEROL 0.5-3(2.5)MG/3ML NEB HHN SCH ×6 (00:35→20:19)
[2022-05-17] MEDS: HYDROCODONE/ACETAMINOPHEN 10/325MG TABLET PO PRN ×6 (02:32→23:11)
[2022-05-17] MEDS: METHYLPREDNISOLONE SOD SUCC 40 MG/ML VIAL IV SCH ×2 (06:23→14:24)
[2022-05-17] MEDS: FUROSEMIDE 40MG/4ML VIAL IVP SCH (08:54)
[2022-05-17] MEDS: FAMOTIDINE 20MG TABLET PO SCH (08:54)
[2022-05-17] MEDS ORDERED: POTASSIUM CHLORIDE 20MEQ TABLET SR PO SCH (21:15)
[2022-05-17] MEDS: ENOXAPARIN 30MG/0.3ML SYR SUBCUT SCH (21:24)
[2022-05-17] MEDS: ZOLPIDEM TARTRATE 5MG TABLET PO PRN (21:24)
[2022-05-18] VITALS (15 sets, daily range): BP systolic 123–160; BP diastolic 69–95
[2022-05-18] MEDS: HYDROCODONE/ACETAMINOPHEN 10/325MG TABLET PO PRN ×2 (03:03→07:46)
[2022-05-18] MEDS: IPRATROPIUM/ALBUTEROL 0.5-3(2.5)MG/3ML NEB HHN SCH ×5 (04:05→16:54)
[2022-05-18 06:15] LABS: BASOPHILS % 0.1 % (0.0-2.0); HEMATOCRIT. 38.3 % (36.0-48.0); HEMOGLOBIN. 12.8 g/dL (12.0-16.0); LYMPHOCYTES % 8.7 % (20.0-50.0); MEAN CORPUSCULAR HEMOGLOBIN 31.3 pg (28.0-32.0); MEAN CORPUSCULAR VOLUME 93.6 fL (81.0-99.0); MEAN PLATELET VOLUME 8.5 fl (7.4-10.4); MONOCYTES % 7.9 % (2.0-8.0); NEUTROPHILS % 83.3 % (40.0-76.0); PLATELET 186 x1000/uL (130-400); RED CELL DISTRIBUTION WIDTH 14.2 % (11.6-14.6)
[2022-05-18 06:18] LABS: CHLORIDE 101 mEq/L (98-107)
[2022-05-18] MEDS: FAMOTIDINE 20MG TABLET PO SCH (08:34)
[2022-05-18] MEDS ORDERED: PREDNISONE 20MG TABLET PO SCH (09:00)
[2022-05-18] MEDS ORDERED: P20 PO (09:37)
[2022-05-18] MEDS ORDERED: FURO-151 MT (09:37)
[2022-05-18] MEDS: FUROSEMIDE 40MG/4ML VIAL IVP SCH (10:54)
[2022-05-18] MEDS ORDERED: HYDROCODONE/ACETAMINOPHEN 10/325MG TABLET PO PRN (15:30)
== END 2022-05-18 18:30 | disposition home or self-care (01) | DRG 194 ==
LOC: ER 06:22 → 5EST 09:24 → ENRESERV 14:14 → ER 15:33 → ENRESERV 17:38
PROVIDERS: ADMIT Internal Medicine; ATTEND Internal Medicine
PROC: 5A09357 Assistance with Respiratory Ventilation, Less than 24 Consecutive Hours, Continuous Positive Airway Pressure (ICD-10-PCS; principal; 2022-05-15)
DX: I11.0 Hypertensive heart disease with heart failure (principal); J96.21 Acute and chronic respiratory failure with hypoxia; Z99.81 Dependence on supplemental oxygen; I50.33 Acute on chronic diastolic (congestive) heart failure; J44.1 Chronic obstructive pulmonary disease with (acute) exacerbation; M19.90 Unspecified osteoarthritis, unspecified site; E11.9 Type 2 diabetes mellitus without complications; E87.6 Hypokalemia; G47.33 Obstructive sleep apnea (adult) (pediatric); J98.11 Atelectasis; Z79.52 Long term (current) use of systemic steroids; Z86.16 Personal history of COVID-19; Z87.891 Personal history of nicotine dependence; Z91.81 History of falling
CPT/HCPCS: 36415; 71045; 80048; 80053; 83880; 84484; 85025; 93005; 94640; 94660; 99291; J1650; J1885; J1940; J2920; J2930; J7512

== ENCOUNTER 2022-09-12 05:34 | Inpatient (IN) | payer MEDICARE, MEDICAID ==
[~2022-09-12] VITALS: Ht 165.1 cm; Wt 46.3 kg
[~2022-09-12 05:34] MED LIST changes: +AZIT500T8 PO; +FURO-151 MT; -FURO20TA4 PO; -LEVO250T43 MT; +LORA-249 PO; -OXYC1TAB5 PO; +P20 PO; +PULM50 HHN; -SPIR25TA PO; -TOPUD PO
[2022-09-12] MEDS ORDERED: MORPHINE SULFATE 4 MG/ML CPJ (NOT FOR IM USE) IV STA (05:42)
[2022-09-12] MEDS ORDERED: ONDANSETRON HCL 4MG/2ML INJ IV STA (05:42)
[2022-09-12 06:08] LABS: HEMATOCRIT. 37.5 % (36.0-48.0); HEMOGLOBIN. 11.9 g/dL (12.0-16.0); MEAN CORPUSCULAR HEMOGLOBIN 31.1 pg (28.0-32.0); MEAN CORPUSCULAR VOLUME 97.9 fL (81.0-99.0); RED BLOOD CELL COUNT 3.83 mill/uL (4.2-5.4); RED CELL DISTRIBUTION WIDTH 17.1 % (11.6-14.6)
[2022-09-12 06:10] LABS: CHLORIDE 106 mEq/L (98-107)
[2022-09-12 06:32] LABS: PROTHROMBIN TIME 10.9 sec (9.6-11.0)
[2022-09-12 07:15] LABS: PLATELET 163 x1000/uL (130-400)
[2022-09-12 07:16] LABS: MEAN PLATELET VOLUME 8.5 fl (7.4-10.4)
[2022-09-12 07:24] LABS: PLATELET ESTIMATE NORMAL
[2022-09-12 10:00] VITALS: BP 121/62
[2022-09-12] MEDS ORDERED: METHYLPREDNISOLONE SOD SUCC 125 MG/2 ML VIAL IV STA (10:00)
[2022-09-12] MEDS ORDERED: IPRATROPIUM BROMIDE (0.02%) 0.5MG/2.5ML NEB HHN STA (10:00)
[2022-09-12] MEDS ORDERED: ALBUTEROL (0.083%) 2.5MG/3ML NEB HHN STA (10:00)
[2022-09-12 12:00] VITALS: BP_SYST 110; BP_SYST 121; BP_DIAS 62; BP_DIAS 73
[2022-09-12] MEDS ORDERED: MINERAL OIL ENEMA 133ML PR NR (13:00)
[2022-09-12] MEDS ORDERED: PREDNISONE 20MG TABLET PO SCH (14:15)
[2022-09-12] MEDS ORDERED: AZITHROMYCIN 500 MG TABLET PO SCH (14:15)
[2022-09-12] MEDS ORDERED: HYDROCODONE/ACETAMINOPHEN 10/325MG TABLET PO PRN (14:15)
[2022-09-12] MEDS ORDERED: FUROSEMIDE 40MG TABLET PO SCH (14:15)
[2022-09-12] MEDS ORDERED: AMLODIPINE 10MG TABLET PO SCH (14:15)
[2022-09-12] MEDS ORDERED: NITROGLYCERIN 0.4MG TABLET SL SL PRN (14:30)
[2022-09-12] MEDS ORDERED: FUROSEMIDE 100MG/10ML VIAL IVP SCH (14:30)
[2022-09-12] MEDS: LORAZEPAM 0.5MG TABLET PO PRN (15:28)
[2022-09-12] MEDS: TRAMADOL 50MG TABLET PO PRN (15:29)
[2022-09-12 16:00] VITALS: BP_SYST 110; BP_SYST 116; BP_DIAS 73
[2022-09-12] MEDS: LACTULOSE 20G/30ML UDC PO SCH ×3 (16:00→23:33)
[2022-09-12] MEDS ORDERED: NALOXONE HCL 0.4MG/ML VIAL IV PRN (17:30)
[2022-09-12] MEDS: FUROSEMIDE 20MG/2ML VIAL IVP SCH (18:26)
[2022-09-12] MEDS: SPIRONOLACTONE 25MG TABLET PO SCH (18:32)
[2022-09-12 20:00] VITALS: BP 100/60
[2022-09-12] MEDS: FAMOTIDINE 20MG TABLET PO SCH (20:23)
[2022-09-12] MEDS: ZOLPIDEM TARTRATE 5MG TABLET PO PRN (20:28)
[2022-09-12] MEDS: BUDESONIDE 0.5MG/2ML NEB HHN SCH (21:21)
[2022-09-13] VITALS: BP 98/59
[2022-09-13] MEDS: TRAMADOL 50MG TABLET PO PRN ×2 (03:44→08:31)
[2022-09-13] MEDS: LACTULOSE 20G/30ML UDC PO SCH ×5 (03:51→20:47)
[2022-09-13 04:00] VITALS: BP 135/83
[2022-09-13] MEDS: FUROSEMIDE 20MG/2ML VIAL IVP SCH ×2 (05:15→17:57)
[2022-09-13] MEDS: SPIRONOLACTONE 25MG TABLET PO SCH ×2 (05:15→17:57)
[2022-09-13] MEDS: LORAZEPAM 0.5MG TABLET PO PRN ×2 (06:12→15:24)
[2022-09-13 06:46] LABS: BASOPHILS % 0.3 % (0.0-2.0); EOSINOPHILS % 1.2 % (0.0-5.0); HEMATOCRIT. 39.9 % (36.0-48.0); HEMOGLOBIN. 13.2 g/dL (12.0-16.0); LYMPHOCYTES % 12.8 % (20.0-50.0); MEAN CORPUSCULAR HEMOGLOBIN 31.5 pg (28.0-32.0); MEAN CORPUSCULAR VOLUME 95.4 fL (81.0-99.0); MEAN PLATELET VOLUME 8.8 fl (7.4-10.4); MONOCYTES % 9.5 % (2.0-8.0); NEUTROPHILS % 76.2 % (40.0-76.0); PLATELET 170 x1000/uL (130-400); RED BLOOD CELL COUNT 4.18 mill/uL (4.2-5.4)
[2022-09-13 08:00] VITALS: BP 120/67
[2022-09-13] MEDS: FAMOTIDINE 20MG TABLET PO SCH ×2 (10:42→20:52)
[2022-09-13 11:37] LABS: CHLORIDE 101 mEq/L (98-107)
[2022-09-13 12:00] VITALS: BP 143/81
[2022-09-13] MEDS: BUDESONIDE 0.5MG/2ML NEB HHN SCH ×2 (12:33→21:19)
[2022-09-13] MEDS: KETOROLAC 15MG/ML VIAL IV PRN ×2 (13:07→20:52)
[2022-09-13 16:00] VITALS: BP 124/75
[2022-09-13 20:00] VITALS: BP 149/89
[2022-09-13] MEDS: ZOLPIDEM TARTRATE 5MG TABLET PO PRN (20:52)
[2022-09-14] VITALS: BP 127/73
[2022-09-14] MEDS: LORAZEPAM 0.5MG TABLET PO PRN ×4 (01:37→23:14)
[2022-09-14] MEDS: KETOROLAC 15MG/ML VIAL IV PRN (03:12)
[2022-09-14 04:00] VITALS: BP 129/80
[2022-09-14] MEDS: LACTULOSE 20G/30ML UDC PO SCH ×6 (04:00→20:00)
[2022-09-14] MEDS: SPIRONOLACTONE 25MG TABLET PO SCH ×2 (06:01→17:49)
[2022-09-14] MEDS: FUROSEMIDE 20MG/2ML VIAL IVP SCH ×2 (06:01→17:49)
[2022-09-14 06:39] LABS: HEMATOCRIT 41.3 % (36.0-48.0); HEMOGLOBIN 13.5 g/dL (12.0-16.0); MEAN CORPUSCULAR HEMOGLOBIN 31.3 pg (28.0-32.0); MEAN CORPUSCULAR VOLUME 95.8 fL (81.0-99.0); PLATELET 170 x1000/uL (130-400); RED BLOOD CELL COUNT 4.31 mill/uL (4.2-5.4); RED CELL DISTRIBUTION WIDTH 14.8 % (11.6-14.6)
[2022-09-14 07:06] LABS: CHLORIDE 98 mEq/L (98-107)
[2022-09-14 08:00] VITALS: BP 141/78
[2022-09-14] MEDS: BUDESONIDE 0.5MG/2ML NEB HHN SCH ×2 (09:05→21:34)
[2022-09-14] MEDS: FAMOTIDINE 20MG TABLET PO SCH ×2 (09:07→20:52)
[2022-09-14] MEDS: TRAMADOL 50MG TABLET PO PRN ×3 (10:09→22:18)
[2022-09-14 12:00] VITALS: BP 135/80
[2022-09-14 16:02] VITALS: BP 129/77
[2022-09-14 20:00] VITALS: BP 109/68
[2022-09-14] MEDS: ZOLPIDEM TARTRATE 5MG TABLET PO PRN (20:52)
[2022-09-15] VITALS: BP 125/77
[2022-09-15 04:00] VITALS: BP 119/75
[2022-09-15] MEDS: LACTULOSE 20G/30ML UDC PO SCH ×4 (04:00→11:27)
[2022-09-15] MEDS: TRAMADOL 50MG TABLET PO PRN ×2 (04:41→10:42)
[2022-09-15] MEDS: LORAZEPAM 0.5MG TABLET PO PRN ×2 (05:14→11:15)
[2022-09-15] MEDS: FUROSEMIDE 20MG/2ML VIAL IVP SCH (06:02)
[2022-09-15] MEDS: SPIRONOLACTONE 25MG TABLET PO SCH (06:07)
[2022-09-15 07:24] LABS: HEMATOCRIT 38.6 % (36.0-48.0); HEMOGLOBIN 12.8 g/dL (12.0-16.0); MEAN CORPUSCULAR HEMOGLOBIN 31.1 pg (28.0-32.0); MEAN CORPUSCULAR VOLUME 93.5 fL (81.0-99.0); PLATELET 181 x1000/uL (130-400); RED BLOOD CELL COUNT 4.12 mill/uL (4.2-5.4); RED CELL DISTRIBUTION WIDTH 15.1 % (11.6-14.6)
[2022-09-15 08:00] VITALS: BP 105/62
[2022-09-15] MEDS: BUDESONIDE 0.5MG/2ML NEB HHN SCH (08:03)
[2022-09-15] MEDS: FAMOTIDINE 20MG TABLET PO SCH (08:11)
[2022-09-15 08:26] LABS: CHLORIDE 96 mEq/L (98-107)
[2022-09-15 12:13] VITALS: BP 120/70
== END 2022-09-15 13:35 | disposition home or self-care (01) ==
LOC: ER 05:47 → 8WST 11:03 → EDBEDREQ 11:06 → EDBEDREQTM 11:06 → ENRESERV 11:31
PROVIDERS: ADMIT Internal Medicine; ATTEND Internal Medicine
DX: K83.1 Obstruction of bile duct (principal); J96.01 Acute respiratory failure with hypoxia; E44.1 Mild protein-calorie malnutrition; I27.20 Pulmonary hypertension, unspecified; K86.89 Other specified diseases of pancreas; K83.8 Other specified diseases of biliary tract; I50.32 Chronic diastolic (congestive) heart failure; I11.0 Hypertensive heart disease with heart failure; J84.9 Interstitial pulmonary disease, unspecified; K59.09 Other constipation; J44.9 Chronic obstructive pulmonary disease, unspecified; I07.1 Rheumatic tricuspid insufficiency; Z88.3 Allergy status to other anti-infective agents; Z99.81 Dependence on supplemental oxygen; Z68.1 Body mass index [BMI] 19.9 or less, adult; R63.4 Abnormal weight loss
CPT/HCPCS: 36415; 71045; 74176; 76705; 78227; 80048; 80053; 83735; 83880; 84100; 85025; 85027; 86301; 93005; 94640; 94644; 99285; A9537; J1885; J1940; J2270; J2405; J7626

== ENCOUNTER 2022-10-03 04:23 | Inpatient (IN) | payer MEDICARE, MEDICAID ==
[~2022-10-03] VITALS: Ht 154.9 cm; Wt 47.8 kg
[2022-10-03] MEDS ORDERED: MORPHINE SULFATE 4 MG/ML CPJ (NOT FOR IM USE) IV STA (04:31)
[2022-10-03] MEDS ORDERED: METHYLPREDNISOLONE SOD SUCC 125 MG/2 ML VIAL IV STA (04:31)
[2022-10-03] MEDS ORDERED: IPRATROPIUM BROMIDE (0.02%) 0.5MG/2.5ML NEB HHN STA (04:31)
[2022-10-03] MEDS ORDERED: ONDANSETRON HCL 4MG/2ML INJ IV STA (04:31)
[2022-10-03] MEDS ORDERED: MAGNESIUM 2 G PREMIX 50 ML IV ONE (04:45)
[2022-10-03] MEDS: ALBUTEROL (0.083%) 2.5MG/3ML NEB HHN SCH ×3 (05:05→06:05)
[2022-10-03 05:06] LABS: BASOPHILS % 0.3 % (0.0-2.0); EOSINOPHILS % 0.5 % (0.0-5.0); HEMATOCRIT. 39.6 % (36.0-48.0); HEMOGLOBIN. 13.2 g/dL (12.0-16.0); LYMPHOCYTES % 16.2 % (20.0-50.0); MEAN CORPUSCULAR HEMOGLOBIN 30.9 pg (28.0-32.0); MEAN CORPUSCULAR VOLUME 93.1 fL (81.0-99.0); MEAN PLATELET VOLUME 8.3 fl (7.4-10.4); MONOCYTES % 11.5 % (2.0-8.0); NEUTROPHILS % 71.5 % (40.0-76.0); PLATELET 150 x1000/uL (130-400); RED BLOOD CELL COUNT 4.25 mill/uL (4.2-5.4); RED CELL DISTRIBUTION WIDTH 14.3 % (11.6-14.6)
[2022-10-03 05:26] LABS: CHLORIDE 91 mEq/L (98-107)
[2022-10-03 06:35] LABS: BG BASE EXCESS -4.1 mmol/L (-2.0-2.0); BG CARBOXYHEMOGLOBIN 0.3 % (0.5-1.5); BG DEOXYHEMOGLOBIN 1.7 % (0.0-5.0); BG FRACTION INSPIRED OXYGEN 50; BG HCO3 ACT 19.5 mmol/L (22.0-26.0); BG METHEMOGLOBIN 0.1 % (0.0-1.5); BG OXYGEN SATURATION 98.3 % (92.0-98.5); BG OXYHEMOGLOBIN 97.9 % (94.0-97.0); BG PCO2 30.5 mmHg (35.0-45.0); BG PH 7.423 (7.350-7.450); BG PO2 136.1 mmHg (75.0-100.0); BG SAMPLE SITE LEFT RADIAL; BG TOTAL HEMOGLOBIN 10.3 g/dL (12.0-18.0); BG VENT MODE MASK - BIPAP
[2022-10-03] MEDS ORDERED: LORAZEPAM 0.5MG TABLET PO NR (08:00)
[2022-10-03] MEDS ORDERED: DOCUSATE SODIUM 100MG CAPSULE PO PRN (08:00)
[2022-10-03] MEDS ORDERED: ACETAMINOPHEN 650MG SUPP PR PRN (08:00)
[2022-10-03] MEDS ORDERED: FUROSEMIDE 40MG/4ML VIAL IV SCH (08:30)
[2022-10-03] MEDS ORDERED: CEFTRIAXONE 1 G PREMIX 50 ML IV SCH (08:30)
[2022-10-03] MEDS: LISINOPRIL 10MG TABLET PO SCH (08:45)
[2022-10-03] MEDS: SODIUM CHLORIDE 0.9% 1,000 ML IV SCH ×2 (08:45→22:55)
[2022-10-03] MEDS: FAMOTIDINE 20MG TABLET PO SCH ×2 (08:46→21:45)
[2022-10-03] MEDS ORDERED: KCL 20MEQ/100ML PREMIX 100 ML IV NR (09:30)
[2022-10-03] MEDS: CEFTRIAXONE 1,000 MG in DEXTROSE 5% WATER 50 ML IV SCH (09:54)
[2022-10-03] MEDS: DOXYCYCLINE 100 MG in DEXT 5% WATER 100 ML IV SCH ×2 (09:55→22:55)
[2022-10-03] MEDS: ENOXAPARIN 40MG/0.4ML SYR SUBCUT SCH (10:12)
[2022-10-03 10:30] LABS: PHOSPHORUS 2.9 mg/dL (2.5-4.9)
[2022-10-03] MEDS: BUDESONIDE 0.5MG/2ML NEB HHN SCH ×2 (10:30→21:00)
[2022-10-03] MEDS: METHYLPREDNISOLONE SOD SUCC 125 MG/2 ML VIAL IV SCH ×2 (12:32→18:11)
[2022-10-03] MEDS ORDERED: IOHEXOL-300 100 ML BOTTLE ONE (14:02)
[2022-10-03] MEDS ORDERED: IOHEXOL-350 100 ML BOTTLE ONE (14:02)
[2022-10-03] MEDS ORDERED: HYDRALAZINE 20MG/ML VIAL IV PRN (15:15)
[2022-10-03] MEDS ORDERED: NALOXONE HCL 0.4MG/ML VIAL IV PRN (15:30)
[2022-10-03] MEDS: HYDROCODONE/ACETAMINOPHEN 10/325MG TABLET PO PRN (15:40)
[2022-10-03 16:37] LABS: CLARITY URINE CLEAR (CLEAR); COLOR URINE YELLOW (YELLOW); KETONES URINE 1+ (NEGATIVE); LEUKOCYTE ESTERASE URINE 2+ (NEGATIVE); NITRITE URINE NEGATIVE (NEGATIVE); OCCULT BLOOD URINE NEGATIVE (NEGATIVE); PH URINE 6.5 (4.5-8.0); PROTEIN URINE NEGATIVE (NEGATIVE); SPECIFIC GRAVITY URINE 1.008 (1.005-1.030); UROBILINOGEN URINE 0.2 E.U./dL (0.2-1.0)
[2022-10-03 19:28] LABS: SODIUM URINE RANDOM 62 mEq/L
[2022-10-03 19:39] LABS: *AMPHETAMINES SCREEN URINE NEGATIVE (NEGATIVE); *BARBITURATES SCREEN URINE NEGATIVE (NEGATIVE); *BENZODIAZEPINES SCREEN URINE NEGATIVE (NEGATIVE); *COCAINE SCREEN URINE NEGATIVE (NEGATIVE); CANNABINOID URINE SCREEN NEGATIVE (NEGATIVE); METHADONE URINE SCREEN NEGATIVE (NEGATIVE); OPIATES URINE SCREEN PRESUMTIVE POSITIVE (NEGATIVE); PHENCYCLIDINE URINE SCREEN NEGATIVE (NEGATIVE)
[2022-10-03] MEDS ORDERED: LORAZEPAM 2MG/ML CPJ IV NR (20:45)
[2022-10-04] MEDS: HYDROCODONE/ACETAMINOPHEN 10/325MG TABLET PO PRN (00:51)
[2022-10-04] MEDS: METHYLPREDNISOLONE SOD SUCC 125 MG/2 ML VIAL IV SCH ×3 (01:40→13:40)
[2022-10-04 02:30] VITALS: BP 114/64
[2022-10-04 04:00] VITALS: BP 122/78
[2022-10-04 06:51] LABS: BASOPHILS % 0.2 % (0.0-2.0); HEMATOCRIT. 37.7 % (36.0-48.0); HEMOGLOBIN. 12.7 g/dL (12.0-16.0); LYMPHOCYTES % 14.2 % (20.0-50.0); MEAN CORPUSCULAR VOLUME 92.3 fL (81.0-99.0); MEAN PLATELET VOLUME 8.9 fl (7.4-10.4); MONOCYTES % 13.7 % (2.0-8.0); NEUTROPHILS % 71.9 % (40.0-76.0); PLATELET 169 x1000/uL (130-400); RED BLOOD CELL COUNT 4.09 mill/uL (4.2-5.4); RED CELL DISTRIBUTION WIDTH 14.3 % (11.6-14.6)
[2022-10-04 08:00] VITALS: BP 140/84
[2022-10-04] MEDS: FUROSEMIDE 40MG/4ML VIAL IV SCH ×2 (08:30→09:00)
[2022-10-04] MEDS: FAMOTIDINE 20MG TABLET PO SCH ×2 (09:07→21:41)
[2022-10-04] MEDS: LISINOPRIL 10MG TABLET PO SCH (09:08)
[2022-10-04] MEDS: ENOXAPARIN 40MG/0.4ML SYR SUBCUT SCH (09:08)
[2022-10-04] MEDS: DOXYCYCLINE 100 MG in DEXT 5% WATER 100 ML IV SCH ×3 (09:30→21:43)
[2022-10-04 09:38] LABS: CHLORIDE 96 mEq/L (98-107)
[2022-10-04] MEDS: CEFTRIAXONE 1,000 MG in DEXTROSE 5% WATER 50 ML IV SCH (10:55)
[2022-10-04] MEDS: SODIUM CHLORIDE 0.9% 1,000 ML IV SCH ×2 (10:59→18:17)
[2022-10-04 12:00] VITALS: BP 128/95
[2022-10-04] MEDS: HYDROCODONE/ACETAMINOPHEN 5/325MG TABLET PO PRN ×3 (14:16→22:15)
[2022-10-04] MEDS ORDERED: SODIUM CHLORIDE 45ML SPRAY NS PRN (15:00)
[2022-10-04 16:00] VITALS: BP 149/99
[2022-10-04] MEDS: BUDESONIDE 0.5MG/2ML NEB HHN SCH ×3 (16:45→21:38)
[2022-10-04 20:00] VITALS: BP 163/98
[2022-10-04] MEDS: METHYLPREDNISOLONE SOD SUCC 40 MG/ML VIAL IV SCH (21:41)
[2022-10-04] MEDS: GUAIFENESIN 600MG ER TABLET PO SCH (21:41)
[2022-10-04] MEDS: OSELTAMIVIR 75MG CAPSULE PO SCH (21:42)
[2022-10-04] MEDS: CLONIDINE 0.1MG TABLET PO PRN (21:42)
[2022-10-05] VITALS (7 sets, daily range): BP systolic 141–168; BP diastolic 77–104
[2022-10-05] MEDS: BUDESONIDE 0.5MG/2ML NEB HHN SCH ×3 (01:32→20:34)
[2022-10-05] MEDS: HYDROCODONE/ACETAMINOPHEN 5/325MG TABLET PO PRN ×6 (02:06→22:13)
[2022-10-05] MEDS: METHYLPREDNISOLONE SOD SUCC 40 MG/ML VIAL IV SCH ×2 (04:48→11:51)
[2022-10-05 06:42] LABS: HEMATOCRIT. 37.6 % (36.0-48.0); HEMOGLOBIN. 12.5 g/dL (12.0-16.0); MEAN CORPUSCULAR HEMOGLOBIN 31.3 pg (28.0-32.0); MEAN PLATELET VOLUME 8.7 fl (7.4-10.4); PLATELET 163 x1000/uL (130-400)
[2022-10-05 07:28] LABS: CHLORIDE 98 mEq/L (98-107)
[2022-10-05] MEDS: FAMOTIDINE 20MG TABLET PO SCH ×2 (08:47→20:23)
[2022-10-05] MEDS: GUAIFENESIN 600MG ER TABLET PO SCH ×2 (08:47→20:24)
[2022-10-05] MEDS: OSELTAMIVIR 75MG CAPSULE PO SCH ×2 (08:47→20:23)
[2022-10-05] MEDS: CEFTRIAXONE 1,000 MG in DEXTROSE 5% WATER 50 ML IV SCH (08:47)
[2022-10-05] MEDS: FUROSEMIDE 40MG TABLET PO SCH (08:47)
[2022-10-05] MEDS: ENOXAPARIN 40MG/0.4ML SYR SUBCUT SCH (08:47)
[2022-10-05] MEDS: LISINOPRIL 10MG TABLET PO SCH (08:47)
[2022-10-05] MEDS: SODIUM CHLORIDE 0.9% 1,000 ML IV SCH (08:53)
[2022-10-05] MEDS: DOXYCYCLINE 100 MG in DEXT 5% WATER 100 ML IV SCH ×2 (10:19→22:22)
[2022-10-05] MEDS: LORAZEPAM 0.5MG TABLET PO PRN (13:15)
[2022-10-05 15:23] LABS: PLATELET ESTIMATE NORMAL
[2022-10-05] MEDS ORDERED: METHYLPREDNISOLONE SOD SUCC 40 MG/ML VIAL IV SCH (17:00)
[2022-10-05] MEDS: CLONIDINE 0.1MG TABLET PO PRN (18:07)
[2022-10-05] MEDS: METHYLPREDNISOLONE SOD SUCC 125 MG/2 ML VIAL IV SCH (20:24)
[2022-10-05] MEDS: IPRATROPIUM/ALBUTEROL 0.5-3(2.5)MG/3ML NEB HHN SCH (20:34)
[2022-10-05] MEDS: ZOLPIDEM TARTRATE 5MG TABLET PO PRN (21:02)
[2022-10-05] MEDS: HYDRALAZINE HCL 50MG TABLET PO SCH (22:12)
[2022-10-06] VITALS (8 sets, daily range): BP systolic 144–182; BP diastolic 78–124
[2022-10-06] MEDS: LORAZEPAM 0.5MG TABLET PO PRN ×2 (00:41→09:03)
[2022-10-06] MEDS: METHYLPREDNISOLONE SOD SUCC 125 MG/2 ML VIAL IV SCH ×4 (00:46→18:35)
[2022-10-06] MEDS: IPRATROPIUM/ALBUTEROL 0.5-3(2.5)MG/3ML NEB HHN SCH ×4 (01:20→14:49)
[2022-10-06] MEDS: HYDROCODONE/ACETAMINOPHEN 5/325MG TABLET PO PRN ×4 (02:15→20:53)
[2022-10-06] MEDS: SODIUM CHLORIDE 0.9% 1,000 ML IV SCH (02:40)
[2022-10-06] MEDS: HYDRALAZINE HCL 50MG TABLET PO SCH ×3 (05:39→22:27)
[2022-10-06 06:15] LABS: HEMATOCRIT. 43.3 % (36.0-48.0); HEMOGLOBIN. 13.8 g/dL (12.0-16.0); MEAN CORPUSCULAR HEMOGLOBIN 30.7 pg (28.0-32.0); MEAN CORPUSCULAR VOLUME 96.6 fL (81.0-99.0); MEAN PLATELET VOLUME 8.7 fl (7.4-10.4); PLATELET 135 x1000/uL (130-400); RED BLOOD CELL COUNT 4.49 mill/uL (4.2-5.4); RED CELL DISTRIBUTION WIDTH 15.3 % (11.6-14.6)
[2022-10-06] MEDS: OSELTAMIVIR 75MG CAPSULE PO SCH ×2 (09:03→20:46)
[2022-10-06] MEDS: FAMOTIDINE 20MG TABLET PO SCH ×2 (09:03→20:46)
[2022-10-06] MEDS: FUROSEMIDE 40MG TABLET PO SCH (09:03)
[2022-10-06] MEDS: ENOXAPARIN 40MG/0.4ML SYR SUBCUT SCH (09:04)
[2022-10-06] MEDS: GUAIFENESIN 600MG ER TABLET PO SCH ×2 (09:04→20:46)
[2022-10-06] MEDS: LISINOPRIL 10MG TABLET PO SCH (09:13)
[2022-10-06] MEDS: CEFTRIAXONE 1,000 MG in DEXTROSE 5% WATER 50 ML IV SCH (09:20)
[2022-10-06 10:23] LABS: BG BASE EXCESS 3.2 mmol/L (-2.0-2.0); BG CARBOXYHEMOGLOBIN 0.6 % (0.5-1.5); BG DEOXYHEMOGLOBIN 9.3 % (0.0-5.0); BG FRACTION INSPIRED OXYGEN 40; BG METHEMOGLOBIN 0.1 % (0.0-1.5); BG OXYGEN SATURATION 90.6 % (92.0-98.5); BG PCO2 48.7 mmHg (35.0-45.0); BG PH 7.393 (7.350-7.450); BG PO2 57.9 mmHg (75.0-100.0); BG SAMPLE SITE RIGHT RADIAL; BG TOTAL HEMOGLOBIN 14.6 g/dL (12.0-18.0); BG VENT MODE NASAL CANNULA
[2022-10-06] MEDS: DOXYCYCLINE 100 MG in DEXT 5% WATER 100 ML IV SCH ×2 (10:47→22:27)
[2022-10-06 13:36] LABS: CHLORIDE 83 mEq/L (98-107)
[2022-10-06 13:43] LABS: PLATELET ESTIMATE NORMAL
[2022-10-06] MEDS: BLOOD SUGAR DIAGNOSTIC STRIP TEST SCH ×2 (16:50→21:00)
[2022-10-06] MEDS: INSULIN LISPRO 100 UNITS/ML SUBCUT SCH ×2 (17:20→21:00)
[2022-10-06] MEDS: FUROSEMIDE 40MG/4ML VIAL IVP SCH (20:00)
[2022-10-06] MEDS: ZOLPIDEM TARTRATE 5MG TABLET PO PRN (20:47)
[2022-10-07] VITALS (27 sets, daily range): BP systolic 106–177; BP diastolic 47–104
[2022-10-07] MEDS: HYDROCODONE/ACETAMINOPHEN 5/325MG TABLET PO PRN ×4 (01:33→22:10)
[2022-10-07] MEDS: METHYLPREDNISOLONE SOD SUCC 125 MG/2 ML VIAL IV SCH ×2 (03:26→08:45)
[2022-10-07] MEDS: CLONIDINE 0.1MG TABLET PO PRN (05:37)
[2022-10-07] MEDS: HYDRALAZINE HCL 50MG TABLET PO SCH ×3 (05:39→21:49)
[2022-10-07] MEDS: BLOOD SUGAR DIAGNOSTIC STRIP TEST SCH ×4 (06:56→21:50)
[2022-10-07] MEDS: INSULIN LISPRO 100 UNITS/ML SUBCUT SCH ×4 (06:57→21:00)
[2022-10-07] MEDS: IPRATROPIUM/ALBUTEROL 0.5-3(2.5)MG/3ML NEB HHN SCH ×4 (08:08→20:41)
[2022-10-07] MEDS: FUROSEMIDE 40MG/4ML VIAL IVP SCH (08:44)
[2022-10-07] MEDS: FAMOTIDINE 20MG TABLET PO SCH ×2 (08:45→21:49)
[2022-10-07] MEDS: LISINOPRIL 10MG TABLET PO SCH (08:45)
[2022-10-07] MEDS: SERTRALINE HCL 25MG TABLET PO SCH (08:45)
[2022-10-07] MEDS: ENOXAPARIN 40MG/0.4ML SYR SUBCUT SCH (08:45)
[2022-10-07] MEDS: GUAIFENESIN 600MG ER TABLET PO SCH ×2 (08:45→21:49)
[2022-10-07] MEDS: OSELTAMIVIR 75MG CAPSULE PO SCH ×2 (08:45→21:49)
[2022-10-07] MEDS: CEFTRIAXONE 1,000 MG in DEXTROSE 5% WATER 50 ML IV SCH (08:46)
[2022-10-07 08:57] LABS: BG BASE EXCESS 13.9 mmol/L (-2.0-2.0); BG FRACTION INSPIRED OXYGEN 44; BG HCO3 ACT 39.5 mmol/L (22.0-26.0); BG METHEMOGLOBIN 0.3 % (0.0-1.5); BG OXYGEN SATURATION 73.7 % (92.0-98.5); BG OXYHEMOGLOBIN 72.7 % (94.0-97.0); BG PCO2 52.7 mmHg (35.0-45.0); BG PH 7.493 (7.350-7.450); BG PO2 35.4 mmHg (75.0-100.0); BG SAMPLE SITE RIGHT BRACHIAL; BG TOTAL HEMOGLOBIN 13.8 g/dL (12.0-18.0); BG VENT MODE NASAL CANNULA
[2022-10-07] MEDS ORDERED: FUROSEMIDE 40MG/4ML VIAL IVP SCH (09:00)
[2022-10-07] MEDS: DOXYCYCLINE 100 MG in DEXT 5% WATER 100 ML IV SCH ×2 (09:31→22:30)
[2022-10-07] MEDS ORDERED: ACETAZOLAMIDE 250MG TABLET PO NR (10:30)
[2022-10-07 11:11] LABS: BG BASE EXCESS 11.8 mmol/L (-2.0-2.0); BG CARBOXYHEMOGLOBIN 1.3 % (0.5-1.5); BG DEOXYHEMOGLOBIN 2.7 % (0.0-5.0); BG FRACTION INSPIRED OXYGEN 40; BG HCO3 ACT 37.4 mmol/L (22.0-26.0); BG METHEMOGLOBIN 0.2 % (0.0-1.5); BG OXYGEN SATURATION 97.3 % (92.0-98.5); BG OXYHEMOGLOBIN 95.8 % (94.0-97.0); BG PCO2 52.2 mmHg (35.0-45.0); BG PH 7.473 (7.350-7.450); BG PO2 88.8 mmHg (75.0-100.0); BG SAMPLE SITE LEFT BRACHIAL; BG TOTAL HEMOGLOBIN 13.9 g/dL (12.0-18.0); BG TOTAL RESPIRATORY RATE 18 b/min; BG VENT MODE MASK - BIPAP
[2022-10-07] MEDS ORDERED: PREDNISONE 20MG TABLET PO SCH (13:00)
[2022-10-07] MEDS ORDERED: KCL 20MEQ/100ML PREMIX 100 ML IV NR (14:00)
[2022-10-07] MEDS: BUDESONIDE 0.5MG/2ML NEB HHN SCH ×2 (14:03→20:41)
[2022-10-07] MEDS ORDERED: TERBUTALINE SULFATE 1MG/ML VIAL SUBCUT NR (14:30)
[2022-10-07] MEDS: METHYLPREDNISOLONE SOD SUCC 40 MG/ML VIAL IV SCH (17:06)
[2022-10-07 18:13] LABS: HEMATOCRIT. 37.7 % (36.0-48.0); HEMOGLOBIN. 12.6 g/dL (12.0-16.0); MEAN CORPUSCULAR HEMOGLOBIN 30.6 pg (28.0-32.0); MEAN CORPUSCULAR VOLUME 91.6 fL (81.0-99.0); PLATELET 166 x1000/uL (130-400); RED BLOOD CELL COUNT 4.11 mill/uL (4.2-5.4); RED CELL DISTRIBUTION WIDTH 14.6 % (11.6-14.6)
[2022-10-07 19:31] LABS: CHLORIDE 81 mEq/L (98-107)
[2022-10-07] MEDS: KCL 20MEQ/100ML PREMIX 100 ML IV SCH (20:47)
[2022-10-07] MEDS: SODIUM CHLORIDE 1000MG TABLET PO SCH (21:49)
[2022-10-07] MEDS: ZOLPIDEM TARTRATE 5MG TABLET PO PRN (21:49)
[2022-10-07] MEDS ORDERED: POTASSIUM CHLORIDE INJ 40 MEQ in DEXT 5% WATER 250 ML IV NR (23:00)
[2022-10-07 23:26] LABS: PLATELET ESTIMATE NORMAL
[2022-10-08] VITALS (68 sets, daily range): BP systolic 97–185; BP diastolic 45–123
[2022-10-08] MEDS: KCL 20MEQ/100ML PREMIX 100 ML IV SCH (00:04)
[2022-10-08] MEDS: IPRATROPIUM/ALBUTEROL 0.5-3(2.5)MG/3ML NEB HHN SCH ×6 (00:27→20:31)
[2022-10-08] MEDS: METHYLPREDNISOLONE SOD SUCC 40 MG/ML VIAL IV SCH ×3 (02:30→17:55)
[2022-10-08] MEDS: SODIUM CHLORIDE 1000MG TABLET PO SCH ×3 (06:00→21:41)
[2022-10-08] MEDS: HYDRALAZINE HCL 50MG TABLET PO SCH ×3 (06:00→21:41)
[2022-10-08 07:49] LABS: PHOSPHORUS 2.4 mg/dL (2.5-4.9)
[2022-10-08] MEDS ORDERED: SODIUM CHLORIDE 0.9% 1,000 ML IV SCH (08:00)
[2022-10-08] MEDS ORDERED: MORPHINE SULFATE 4 MG/ML CPJ (NOT FOR IM USE) IV SCH (08:15)
[2022-10-08] MEDS ORDERED: NITROGLYCERIN OINT 1GM/INCH UDPKT TD PRN (08:15)
[2022-10-08] MEDS: INSULIN LISPRO 100 UNITS/ML SUBCUT SCH ×4 (08:20→22:14)
[2022-10-08] MEDS: ENOXAPARIN 40MG/0.4ML SYR SUBCUT SCH (08:28)
[2022-10-08] MEDS: SERTRALINE HCL 25MG TABLET PO SCH (08:29)
[2022-10-08] MEDS: OSELTAMIVIR 75MG CAPSULE PO SCH ×2 (08:29→21:41)
[2022-10-08] MEDS: FAMOTIDINE 20MG TABLET PO SCH ×2 (08:36→21:41)
[2022-10-08] MEDS: GUAIFENESIN 600MG ER TABLET PO SCH ×2 (08:36→21:41)
[2022-10-08] MEDS: CEFTRIAXONE 1,000 MG in DEXTROSE 5% WATER 50 ML IV SCH (08:36)
[2022-10-08] MEDS: BLOOD SUGAR DIAGNOSTIC STRIP TEST SCH ×4 (08:44→21:00)
[2022-10-08] MEDS: BUDESONIDE 0.5MG/2ML NEB HHN SCH ×2 (08:44→20:31)
[2022-10-08] MEDS: LISINOPRIL 10MG TABLET PO SCH (08:52)
[2022-10-08 09:06] LABS: BG BASE EXCESS 11.1 mmol/L (-2.0-2.0); BG CARBOXYHEMOGLOBIN 0.3 % (0.5-1.5); BG DEOXYHEMOGLOBIN 3.9 % (0.0-5.0); BG FRACTION INSPIRED OXYGEN 40; BG HCO3 ACT 37.4 mmol/L (22.0-26.0); BG METHEMOGLOBIN 0.5 % (0.0-1.5); BG OXYGEN SATURATION 96.1 % (92.0-98.5); BG OXYHEMOGLOBIN 95.3 % (94.0-97.0); BG PCO2 56.9 mmHg (35.0-45.0); BG PH 7.436 (7.350-7.450); BG PO2 81.9 mmHg (75.0-100.0); BG SAMPLE SITE RIGHT RADIAL; BG TOTAL HEMOGLOBIN 13.3 g/dL (12.0-18.0); BG TOTAL RESPIRATORY RATE 32 b/min; BG VENT MODE MASK - BIPAP
[2022-10-08 10:10] LABS: CHLORIDE 83 mEq/L (98-107)
[2022-10-08] MEDS: DOXYCYCLINE 100 MG in DEXT 5% WATER 100 ML IV SCH (10:57)
[2022-10-08] MEDS ORDERED: HYDRALAZINE 20MG/ML VIAL IV SCH (12:00)
[2022-10-08] MEDS ORDERED: HYDRALAZINE 20MG/ML VIAL IV PRN (13:00)
[2022-10-08 13:04] LABS: CHLORIDE 81 mEq/L (98-107)
[2022-10-08] MEDS: HYDROCODONE/ACETAMINOPHEN 5/325MG TABLET PO PRN ×2 (13:22→19:57)
[2022-10-08] MEDS: MORPHINE SULFATE 2 MG/ML CPJ (NOT FOR IM USE) IV PRN (14:56)
[2022-10-08 18:10] LABS: BG BASE EXCESS 7.1 mmol/L (-2.0-2.0); BG CARBOXYHEMOGLOBIN 0.6 % (0.5-1.5); BG DEOXYHEMOGLOBIN 11.3 % (0.0-5.0); BG FRACTION INSPIRED OXYGEN 30; BG HCO3 ACT 33.6 mmol/L (22.0-26.0); BG METHEMOGLOBIN 0.1 % (0.0-1.5); BG OXYGEN SATURATION 88.6 % (92.0-98.5); BG PCO2 55.7 mmHg (35.0-45.0); BG PH 7.398 (7.350-7.450); BG PO2 54.8 mmHg (75.0-100.0); BG SAMPLE SITE RIGHT RADIAL; BG TOTAL HEMOGLOBIN 13.4 g/dL (12.0-18.0); BG TOTAL RESPIRATORY RATE 33 b/min; BG VENT MODE MASK - BIPAP
[2022-10-08 21:12] LABS: CHLORIDE 83 mEq/L (98-107)
[2022-10-08] MEDS: ZOLPIDEM TARTRATE 5MG TABLET PO PRN (21:41)
[2022-10-08] MEDS ORDERED: DOXYCYCLINE 100 MG in SODIUM CHLORIDE 0.9% 100 ML IV SCH (22:30)
[2022-10-09] VITALS (47 sets, daily range): BP systolic 48–161; BP diastolic 27–114
[2022-10-09] MEDS: IPRATROPIUM/ALBUTEROL 0.5-3(2.5)MG/3ML NEB HHN SCH ×6 (00:29→20:58)
[2022-10-09 00:50] LABS: CHLORIDE 84 mEq/L (98-107)
[2022-10-09] MEDS: HYDROCODONE/ACETAMINOPHEN 5/325MG TABLET PO PRN ×5 (01:55→23:52)
[2022-10-09] MEDS: MORPHINE SULFATE 2 MG/ML CPJ (NOT FOR IM USE) IV PRN (04:28)
[2022-10-09] MEDS: METHYLPREDNISOLONE SOD SUCC 40 MG/ML VIAL IV SCH ×3 (04:32→18:22)
[2022-10-09 05:54] LABS: HEMATOCRIT. 36.8 % (36.0-48.0); HEMOGLOBIN. 12.1 g/dL (12.0-16.0); MEAN CORPUSCULAR HEMOGLOBIN 30.8 pg (28.0-32.0); MEAN CORPUSCULAR VOLUME 93.8 fL (81.0-99.0); MEAN PLATELET VOLUME 9.1 fl (7.4-10.4); PLATELET 151 x1000/uL (130-400); RED BLOOD CELL COUNT 3.93 mill/uL (4.2-5.4); RED CELL DISTRIBUTION WIDTH 14.8 % (11.6-14.6)
[2022-10-09 05:56] LABS: CHLORIDE 84 mEq/L (98-107)
[2022-10-09] MEDS: BLOOD SUGAR DIAGNOSTIC STRIP TEST SCH ×4 (07:39→21:54)
[2022-10-09] MEDS: HYDRALAZINE HCL 50MG TABLET PO SCH ×3 (07:46→21:31)
[2022-10-09] MEDS: SODIUM CHLORIDE 1000MG TABLET PO SCH ×3 (07:46→21:31)
[2022-10-09] MEDS: INSULIN LISPRO 100 UNITS/ML SUBCUT SCH ×4 (07:47→21:00)
[2022-10-09] MEDS: BUDESONIDE 0.5MG/2ML NEB HHN SCH ×2 (08:49→20:58)
[2022-10-09 09:10] LABS: BG BASE EXCESS 7.4 mmol/L (-2.0-2.0); BG CARBOXYHEMOGLOBIN 0.5 % (0.5-1.5); BG DEOXYHEMOGLOBIN 13.5 % (0.0-5.0); BG FRACTION INSPIRED OXYGEN 30; BG HCO3 ACT 32.9 mmol/L (22.0-26.0); BG METHEMOGLOBIN 0.1 % (0.0-1.5); BG OXYGEN SATURATION 86.4 % (92.0-98.5); BG OXYHEMOGLOBIN 85.9 % (94.0-97.0); BG PCO2 50.2 mmHg (35.0-45.0); BG PH 7.435 (7.350-7.450); BG PO2 49.8 mmHg (75.0-100.0); BG SAMPLE SITE RIGHT RADIAL; BG TOTAL HEMOGLOBIN 13.4 g/dL (12.0-18.0); BG VENT MODE MASK - BIPAP
[2022-10-09] MEDS: ENOXAPARIN 40MG/0.4ML SYR SUBCUT SCH (09:10)
[2022-10-09] MEDS: OSELTAMIVIR 75MG CAPSULE PO SCH (09:11)
[2022-10-09] MEDS: SERTRALINE HCL 25MG TABLET PO SCH (09:11)
[2022-10-09] MEDS: FAMOTIDINE 20MG TABLET PO SCH ×2 (09:11→21:30)
[2022-10-09] MEDS: LISINOPRIL 10MG TABLET PO SCH (09:11)
[2022-10-09] MEDS: GUAIFENESIN 600MG ER TABLET PO SCH ×2 (09:14→21:30)
[2022-10-09 10:36] LABS: PLATELET ESTIMATE NORMAL
[2022-10-09 13:04] LABS: CHLORIDE 84 mEq/L (98-107)
[2022-10-09 15:59] LABS: BG BASE EXCESS 8.5 mmol/L (-2.0-2.0); BG CARBOXYHEMOGLOBIN 0.7 % (0.5-1.5); BG DEOXYHEMOGLOBIN 4.5 % (0.0-5.0); BG FRACTION INSPIRED OXYGEN 40; BG METHEMOGLOBIN 0.2 % (0.0-1.5); BG OXYGEN SATURATION 95.5 % (92.0-98.5); BG OXYHEMOGLOBIN 94.6 % (94.0-97.0); BG PCO2 50.1 mmHg (35.0-45.0); BG PH 7.449 (7.350-7.450); BG PO2 76.2 mmHg (75.0-100.0); BG SAMPLE SITE RIGHT RADIAL; BG TOTAL HEMOGLOBIN 13.3 g/dL (12.0-18.0); BG VENT MODE MASK - BIPAP
[2022-10-09] MEDS: ZOLPIDEM TARTRATE 5MG TABLET PO PRN (18:35)
[2022-10-09 19:08] LABS: CHLORIDE 86 mEq/L (98-107)
[2022-10-10] VITALS (49 sets, daily range): BP systolic 109–155; BP diastolic 33–117
[2022-10-10] MEDS: IPRATROPIUM/ALBUTEROL 0.5-3(2.5)MG/3ML NEB HHN SCH ×6 (00:08→20:40)
[2022-10-10] MEDS: METHYLPREDNISOLONE SOD SUCC 40 MG/ML VIAL IV SCH ×3 (01:59→17:37)
[2022-10-10] MEDS: HYDROCODONE/ACETAMINOPHEN 5/325MG TABLET PO PRN ×5 (04:31→21:11)
[2022-10-10 05:40] LABS: HEMOGLOBIN. 11.8 g/dL (12.0-16.0); MEAN CORPUSCULAR HEMOGLOBIN 30.5 pg (28.0-32.0); MEAN CORPUSCULAR VOLUME 93.2 fL (81.0-99.0); MEAN PLATELET VOLUME 9.3 fl (7.4-10.4); PLATELET 176 x1000/uL (130-400); RED BLOOD CELL COUNT 3.86 mill/uL (4.2-5.4); RED CELL DISTRIBUTION WIDTH 15.1 % (11.6-14.6)
[2022-10-10 05:55] LABS: CHLORIDE 87 mEq/L (98-107)
[2022-10-10] MEDS: BLOOD SUGAR DIAGNOSTIC STRIP TEST SCH ×4 (07:26→20:54)
[2022-10-10] MEDS: INSULIN LISPRO 100 UNITS/ML SUBCUT SCH ×4 (07:27→20:55)
[2022-10-10] MEDS: SODIUM CHLORIDE 1000MG TABLET PO SCH ×3 (07:28→21:07)
[2022-10-10] MEDS: HYDRALAZINE HCL 50MG TABLET PO SCH ×3 (07:28→21:08)
[2022-10-10] MEDS: LISINOPRIL 10MG TABLET PO SCH (08:13)
[2022-10-10] MEDS: FAMOTIDINE 20MG TABLET PO SCH ×2 (08:13→21:08)
[2022-10-10] MEDS: GUAIFENESIN 600MG ER TABLET PO SCH ×2 (08:13→21:07)
[2022-10-10] MEDS: SERTRALINE HCL 25MG TABLET PO SCH (08:13)
[2022-10-10] MEDS: ENOXAPARIN 40MG/0.4ML SYR SUBCUT SCH (08:14)
[2022-10-10] MEDS: BUDESONIDE 0.5MG/2ML NEB HHN SCH (09:11)
[2022-10-10 09:13] LABS: BG BASE EXCESS 8.2 mmol/L (-2.0-2.0); BG CARBOXYHEMOGLOBIN 0.8 % (0.5-1.5); BG DEOXYHEMOGLOBIN 10.7 % (0.0-5.0); BG FRACTION INSPIRED OXYGEN 30; BG HCO3 ACT 33.3 mmol/L (22.0-26.0); BG OXYGEN SATURATION 89.2 % (92.0-98.5); BG OXYHEMOGLOBIN 88.5 % (94.0-97.0); BG PCO2 48.2 mmHg (35.0-45.0); BG PH 7.457 (7.350-7.450); BG PO2 55.3 mmHg (75.0-100.0); BG SAMPLE SITE RIGHT RADIAL; BG TOTAL HEMOGLOBIN 12.9 g/dL (12.0-18.0); BG TOTAL RESPIRATORY RATE 22 b/min; BG VENT MODE MASK - BIPAP
[2022-10-10] MEDS ORDERED: TERBUTALINE SULFATE 1MG/ML VIAL SUBCUT SCH (10:00)
[2022-10-10 14:13] LABS: PLATELET ESTIMATE NORMAL
[2022-10-10] MEDS: ZOLPIDEM TARTRATE 5MG TABLET PO PRN (19:52)
[2022-10-11] VITALS (47 sets, daily range): BP systolic 118–168; BP diastolic 60–112
[2022-10-11] MEDS: IPRATROPIUM/ALBUTEROL 0.5-3(2.5)MG/3ML NEB HHN SCH ×6 (00:34→20:05)
[2022-10-11] MEDS: METHYLPREDNISOLONE SOD SUCC 40 MG/ML VIAL IV SCH ×3 (02:06→18:20)
[2022-10-11] MEDS: HYDROCODONE/ACETAMINOPHEN 5/325MG TABLET PO PRN ×3 (02:07→10:28)
[2022-10-11 05:54] LABS: HEMATOCRIT 34.5 % (36.0-48.0); HEMOGLOBIN 11.4 g/dL (12.0-16.0); MEAN CORPUSCULAR HEMOGLOBIN 30.9 pg (28.0-32.0); MEAN CORPUSCULAR VOLUME 93.3 fL (81.0-99.0); PLATELET 179 x1000/uL (130-400); RED CELL DISTRIBUTION WIDTH 15.1 % (11.6-14.6)
[2022-10-11] MEDS: SODIUM CHLORIDE 1000MG TABLET PO SCH ×3 (06:22→23:15)
[2022-10-11] MEDS: HYDRALAZINE HCL 50MG TABLET PO SCH ×3 (06:22→23:15)
[2022-10-11 06:53] LABS: CHLORIDE 90 mEq/L (98-107)
[2022-10-11 07:02] LABS: PHOSPHORUS 3.1 mg/dL (2.5-4.9)
[2022-10-11] MEDS: BLOOD SUGAR DIAGNOSTIC STRIP TEST SCH ×4 (07:37→20:48)
[2022-10-11] MEDS: INSULIN LISPRO 100 UNITS/ML SUBCUT SCH ×4 (07:38→20:48)
[2022-10-11 08:18] LABS: BG BASE EXCESS 12.1 mmol/L (-2.0-2.0); BG DEOXYHEMOGLOBIN 4.6 % (0.0-5.0); BG FRACTION INSPIRED OXYGEN 40; BG HCO3 ACT 37.9 mmol/L (22.0-26.0); BG METHEMOGLOBIN 0.2 % (0.0-1.5); BG OXYGEN SATURATION 95.3 % (92.0-98.5); BG OXYHEMOGLOBIN 94.2 % (94.0-97.0); BG PCO2 54.6 mmHg (35.0-45.0); BG PH 7.459 (7.350-7.450); BG PO2 74.4 mmHg (75.0-100.0); BG SAMPLE SITE LEFT RADIAL; BG TOTAL HEMOGLOBIN 12.2 g/dL (12.0-18.0); BG TOTAL RESPIRATORY RATE 16 b/min; BG VENT MODE MASK - BIPAP
[2022-10-11] MEDS: GUAIFENESIN 600MG ER TABLET PO SCH ×2 (08:51→20:39)
[2022-10-11] MEDS: FAMOTIDINE 20MG TABLET PO SCH ×2 (08:51→20:38)
[2022-10-11] MEDS: LISINOPRIL 10MG TABLET PO SCH (08:51)
[2022-10-11] MEDS: SERTRALINE HCL 25MG TABLET PO SCH (08:51)
[2022-10-11] MEDS: ENOXAPARIN 40MG/0.4ML SYR SUBCUT SCH (08:51)
[2022-10-11 09:56] LABS: BG BASE EXCESS 10.5 mmol/L (-2.0-2.0); BG CARBOXYHEMOGLOBIN 0.8 % (0.5-1.5); BG DEOXYHEMOGLOBIN 9.3 % (0.0-5.0); BG HCO3 ACT 36.1 mmol/L (22.0-26.0); BG METHEMOGLOBIN 0.2 % (0.0-1.5); BG OXYGEN SATURATION 90.6 % (92.0-98.5); BG OXYHEMOGLOBIN 89.7 % (94.0-97.0); BG PCO2 52.5 mmHg (35.0-45.0); BG PH 7.455 (7.350-7.450); BG PO2 59.7 mmHg (75.0-100.0); BG SAMPLE SITE RIGHT RADIAL; BG TOTAL HEMOGLOBIN 12.3 g/dL (12.0-18.0); BG VENT MODE MASK - VENTI
[2022-10-11 12:58] LABS: BG BASE EXCESS 10.7 mmol/L (-2.0-2.0); BG CARBOXYHEMOGLOBIN 0.8 % (0.5-1.5); BG DEOXYHEMOGLOBIN 12.1 % (0.0-5.0); BG FRACTION INSPIRED OXYGEN 40; BG HCO3 ACT 36.8 mmol/L (22.0-26.0); BG METHEMOGLOBIN 0.2 % (0.0-1.5); BG OXYGEN SATURATION 87.8 % (92.0-98.5); BG OXYHEMOGLOBIN 86.9 % (94.0-97.0); BG PCO2 55.1 mmHg (35.0-45.0); BG PH 7.442 (7.350-7.450); BG PO2 53.3 mmHg (75.0-100.0); BG SAMPLE SITE RIGHT RADIAL; BG TOTAL HEMOGLOBIN 12.5 g/dL (12.0-18.0); BG VENT MODE VAPOTHERM
[2022-10-11] MEDS: HYDROCODONE/ACETAMINOPHEN 10/325MG TABLET PO PRN ×2 (14:27→20:39)
[2022-10-11 17:03] LABS: BG BASE EXCESS 10.3 mmol/L (-2.0-2.0); BG CARBOXYHEMOGLOBIN 0.4 % (0.5-1.5); BG DEOXYHEMOGLOBIN 8.5 % (0.0-5.0); BG HCO3 ACT 36.4 mmol/L (22.0-26.0); BG METHEMOGLOBIN 0.3 % (0.0-1.5); BG OXYGEN SATURATION 91.4 % (92.0-98.5); BG OXYHEMOGLOBIN 90.8 % (94.0-97.0); BG PH 7.431 (7.350-7.450); BG PO2 61.6 mmHg (75.0-100.0); BG SAMPLE SITE RIGHT RADIAL; BG TOTAL HEMOGLOBIN 12.4 g/dL (12.0-18.0); BG VENT MODE VAPOTHERM
[2022-10-11] MEDS: ZOLPIDEM TARTRATE 5MG TABLET PO PRN (18:51)
[2022-10-11] MEDS ORDERED: HYDRALAZINE 20MG/ML VIAL IV NR (19:15)
[2022-10-12] VITALS (42 sets, daily range): BP systolic 126–159; BP diastolic 68–103
[2022-10-12] MEDS: IPRATROPIUM/ALBUTEROL 0.5-3(2.5)MG/3ML NEB HHN SCH ×6 (00:48→20:17)
[2022-10-12] MEDS: METHYLPREDNISOLONE SOD SUCC 40 MG/ML VIAL IV SCH ×3 (02:46→18:30)
[2022-10-12] MEDS: HYDROCODONE/ACETAMINOPHEN 10/325MG TABLET PO PRN ×4 (02:46→22:09)
[2022-10-12 05:36] LABS: HEMATOCRIT 35.3 % (36.0-48.0); HEMOGLOBIN 11.7 g/dL (12.0-16.0); MEAN CORPUSCULAR HEMOGLOBIN 31.3 pg (28.0-32.0); MEAN CORPUSCULAR VOLUME 94.5 fL (81.0-99.0); PLATELET 192 x1000/uL (130-400); RED BLOOD CELL COUNT 3.74 mill/uL (4.2-5.4); RED CELL DISTRIBUTION WIDTH 15.5 % (11.6-14.6)
[2022-10-12] MEDS: HYDRALAZINE HCL 50MG TABLET PO SCH ×3 (05:59→22:08)
[2022-10-12] MEDS: BLOOD SUGAR DIAGNOSTIC STRIP TEST SCH ×4 (07:50→21:00)
[2022-10-12] MEDS: INSULIN LISPRO 100 UNITS/ML SUBCUT SCH ×4 (08:20→21:00)
[2022-10-12 08:33] LABS: BG BASE EXCESS 9.7 mmol/L (-2.0-2.0); BG CARBOXYHEMOGLOBIN 0.3 % (0.5-1.5); BG DEOXYHEMOGLOBIN 8.5 % (0.0-5.0); BG FRACTION INSPIRED OXYGEN 50; BG HCO3 ACT 36.2 mmol/L (22.0-26.0); BG METHEMOGLOBIN 0.1 % (0.0-1.5); BG OXYGEN SATURATION 91.5 % (92.0-98.5); BG OXYHEMOGLOBIN 91.1 % (94.0-97.0); BG PCO2 57.5 mmHg (35.0-45.0); BG PH 7.417 (7.350-7.450); BG PO2 62.5 mmHg (75.0-100.0); BG SAMPLE SITE RIGHT RADIAL; BG TOTAL HEMOGLOBIN 12.9 g/dL (12.0-18.0); BG VENT MODE HIGH FLOW
[2022-10-12] MEDS: FAMOTIDINE 20MG TABLET PO SCH ×2 (09:00→09:14)
[2022-10-12] MEDS ORDERED: SERTRALINE HCL 25MG TABLET PO SCH (09:00)
[2022-10-12] MEDS: SODIUM CHLORIDE 1000MG TABLET PO SCH ×2 (09:00→09:13)
[2022-10-12] MEDS: GUAIFENESIN 600MG ER TABLET PO SCH ×2 (09:00→09:13)
[2022-10-12] MEDS: ENOXAPARIN 40MG/0.4ML SYR SUBCUT SCH (09:13)
[2022-10-12] MEDS: BUSPIRONE HCL 5MG TABLET PO SCH ×2 (09:13→22:08)
[2022-10-12] MEDS: LISINOPRIL 10MG TABLET PO SCH (09:15)
[2022-10-12] MEDS: ZOLPIDEM TARTRATE 5MG TABLET PO PRN (22:09)
[2022-10-13] VITALS (13 sets, daily range): BP systolic 117–148; BP diastolic 77–99
[2022-10-13] MEDS: IPRATROPIUM/ALBUTEROL 0.5-3(2.5)MG/3ML NEB HHN SCH ×6 (00:08→20:08)
[2022-10-13] MEDS: HYDROCODONE/ACETAMINOPHEN 10/325MG TABLET PO PRN ×3 (04:56→18:40)
[2022-10-13] MEDS: HYDRALAZINE HCL 50MG TABLET PO SCH ×2 (05:00→13:31)
[2022-10-13] MEDS: BLOOD SUGAR DIAGNOSTIC STRIP TEST SCH ×4 (07:30→21:00)
[2022-10-13] MEDS: INSULIN LISPRO 100 UNITS/ML SUBCUT SCH ×4 (08:00→21:00)
[2022-10-13 09:02] LABS: BG BASE EXCESS 10.8 mmol/L (-2.0-2.0); BG CARBOXYHEMOGLOBIN 0.9 % (0.5-1.5); BG DEOXYHEMOGLOBIN 9.8 % (0.0-5.0); BG FRACTION INSPIRED OXYGEN 40; BG HCO3 ACT 36.9 mmol/L (22.0-26.0); BG OXYGEN SATURATION 90.1 % (92.0-98.5); BG OXYHEMOGLOBIN 89.3 % (94.0-97.0); BG PCO2 55.7 mmHg (35.0-45.0); BG PH 7.439 (7.350-7.450); BG PO2 57.3 mmHg (75.0-100.0); BG SAMPLE SITE RIGHT RADIAL; BG TOTAL HEMOGLOBIN 12.6 g/dL (12.0-18.0); BG VENT MODE HIGH FLOW
[2022-10-13] MEDS: SERTRALINE HCL 50MG TABLET PO SCH (09:41)
[2022-10-13] MEDS: FAMOTIDINE 20MG TABLET PO SCH ×2 (09:41→21:58)
[2022-10-13] MEDS: GUAIFENESIN 600MG ER TABLET PO SCH ×2 (09:41→21:58)
[2022-10-13] MEDS: SODIUM CHLORIDE 1000MG TABLET PO SCH ×2 (09:41→16:46)
[2022-10-13] MEDS: BUSPIRONE HCL 5MG TABLET PO SCH ×2 (09:41→21:58)
[2022-10-13] MEDS: METHYLPREDNISOLONE SOD SUCC 40 MG/ML VIAL IV SCH ×2 (09:42→16:46)
[2022-10-13] MEDS: ENOXAPARIN 40MG/0.4ML SYR SUBCUT SCH (09:43)
[2022-10-13] MEDS: LISINOPRIL 10MG TABLET PO SCH (09:47)
[2022-10-13] MEDS: BUDESONIDE 0.5MG/2ML NEB HHN SCH ×2 (12:05→20:08)
[2022-10-13] MEDS: MONTELUKAST SODIUM 10MG TABLET PO SCH (16:46)
[2022-10-13] MEDS: DILTIAZEM HCL 30MG TABLET PO SCH (21:57)
[2022-10-13] MEDS: ZOLPIDEM TARTRATE 5MG TABLET PO PRN (21:58)
[2022-10-14] VITALS (12 sets, daily range): BP systolic 101–155; BP diastolic 50–96
[2022-10-14] MEDS: IPRATROPIUM/ALBUTEROL 0.5-3(2.5)MG/3ML NEB HHN SCH ×6 (00:39→21:18)
[2022-10-14] MEDS: HYDROCODONE/ACETAMINOPHEN 10/325MG TABLET PO PRN ×3 (04:41→17:16)
[2022-10-14] MEDS: DILTIAZEM HCL 30MG TABLET PO SCH (05:58)
[2022-10-14] MEDS: INSULIN LISPRO 100 UNITS/ML SUBCUT SCH ×4 (08:00→21:00)
[2022-10-14] MEDS: BLOOD SUGAR DIAGNOSTIC STRIP TEST SCH ×4 (08:17→21:00)
[2022-10-14] MEDS: LISINOPRIL 10MG TABLET PO SCH (08:29)
[2022-10-14] MEDS: METHYLPREDNISOLONE SOD SUCC 40 MG/ML VIAL IV SCH ×2 (08:29→17:16)
[2022-10-14] MEDS: SODIUM CHLORIDE 1000MG TABLET PO SCH (08:29)
[2022-10-14] MEDS: BUSPIRONE HCL 5MG TABLET PO SCH ×2 (08:29→22:28)
[2022-10-14] MEDS: FAMOTIDINE 20MG TABLET PO SCH ×2 (08:29→22:27)
[2022-10-14] MEDS: GUAIFENESIN 600MG ER TABLET PO SCH ×2 (08:29→22:28)
[2022-10-14] MEDS: MEGESTROL ACETATE 400 MG/10 ML UDC PO SCH (08:30)
[2022-10-14] MEDS: SERTRALINE HCL 50MG TABLET PO SCH (08:32)
[2022-10-14] MEDS: ENOXAPARIN 40MG/0.4ML SYR SUBCUT SCH (08:50)
[2022-10-14 09:04] LABS: CHLORIDE 102 mEq/L (98-107)
[2022-10-14] MEDS: BUDESONIDE 0.5MG/2ML NEB HHN SCH ×2 (09:40→21:18)
[2022-10-14] MEDS: SERTRALINE HCL 100MG TABLET PO SCH (10:00)
[2022-10-14 13:06] LABS: BG BASE EXCESS 4.7 mmol/L (-2.0-2.0); BG CARBOXYHEMOGLOBIN 0.5 % (0.5-1.5); BG DEOXYHEMOGLOBIN 8.6 % (0.0-5.0); BG FRACTION INSPIRED OXYGEN 60; BG HCO3 ACT 31.5 mmol/L (22.0-26.0); BG METHEMOGLOBIN 0.1 % (0.0-1.5); BG OXYGEN SATURATION 91.3 % (92.0-98.5); BG OXYHEMOGLOBIN 90.8 % (94.0-97.0); BG PCO2 56.7 mmHg (35.0-45.0); BG PH 7.362 (7.350-7.450); BG PO2 66.5 mmHg (75.0-100.0); BG SAMPLE SITE RIGHT RADIAL; BG TOTAL HEMOGLOBIN 12.3 g/dL (12.0-18.0); BG VENT MODE HIGH FLOW
[2022-10-14] MEDS: DILTIAZEM HCL 60MG TABLET PO SCH ×2 (14:27→22:28)
[2022-10-14 14:52] LABS: CHLORIDE 96 mEq/L (98-107); PHOSPHORUS 3.3 mg/dL (2.5-4.9)
[2022-10-14] MEDS: MONTELUKAST SODIUM 10MG TABLET PO SCH (17:15)
[2022-10-14] MEDS: ZOLPIDEM TARTRATE 5MG TABLET PO PRN (22:27)
[2022-10-15] VITALS (12 sets, daily range): BP systolic 89–127; BP diastolic 57–74
[2022-10-15] MEDS: HYDROCODONE/ACETAMINOPHEN 10/325MG TABLET PO PRN ×4 (00:29→23:17)
[2022-10-15] MEDS: IPRATROPIUM/ALBUTEROL 0.5-3(2.5)MG/3ML NEB HHN SCH ×6 (00:36→21:21)
[2022-10-15] MEDS: DILTIAZEM HCL 60MG TABLET PO SCH ×3 (06:49→22:00)
[2022-10-15] MEDS: BUDESONIDE 0.5MG/2ML NEB HHN SCH ×2 (07:49→21:22)
[2022-10-15] MEDS: INSULIN LISPRO 100 UNITS/ML SUBCUT SCH ×4 (08:00→21:46)
[2022-10-15] MEDS: BLOOD SUGAR DIAGNOSTIC STRIP TEST SCH ×4 (08:12→21:00)
[2022-10-15 08:20] LABS: HEMATOCRIT. 34.3 % (36.0-48.0); HEMOGLOBIN. 11.2 g/dL (12.0-16.0); MEAN CORPUSCULAR HEMOGLOBIN 31.1 pg (28.0-32.0); MEAN CORPUSCULAR VOLUME 95.2 fL (81.0-99.0); MEAN PLATELET VOLUME 9.7 fl (7.4-10.4); PLATELET 149 x1000/uL (130-400)
[2022-10-15] MEDS: METHYLPREDNISOLONE SOD SUCC 40 MG/ML VIAL IV SCH ×3 (08:45→17:24)
[2022-10-15] MEDS: GUAIFENESIN 600MG ER TABLET PO SCH ×2 (08:45→21:02)
[2022-10-15 08:46] LABS: CHLORIDE 105 mEq/L (98-107)
[2022-10-15] MEDS: LISINOPRIL 10MG TABLET PO SCH (08:46)
[2022-10-15] MEDS: SERTRALINE HCL 100MG TABLET PO SCH (08:47)
[2022-10-15] MEDS: FAMOTIDINE 20MG TABLET PO SCH ×2 (08:47→21:02)
[2022-10-15] MEDS: BUSPIRONE HCL 5MG TABLET PO SCH ×2 (08:47→21:02)
[2022-10-15] MEDS: ENOXAPARIN 40MG/0.4ML SYR SUBCUT SCH (08:48)
[2022-10-15] MEDS: MEGESTROL ACETATE 400 MG/10 ML UDC PO SCH (08:49)
[2022-10-15 10:19] LABS: BG BASE EXCESS 10.4 mmol/L (-2.0-2.0); BG CARBOXYHEMOGLOBIN 1.1 % (0.5-1.5); BG DEOXYHEMOGLOBIN 15.7 % (0.0-5.0); BG FRACTION INSPIRED OXYGEN 50; BG HCO3 ACT 39.4 mmol/L (22.0-26.0); BG METHEMOGLOBIN 0.2 % (0.0-1.5); BG OXYGEN SATURATION 84.1 % (92.0-98.5); BG PCO2 76.9 mmHg (35.0-45.0); BG PH 7.327 (7.350-7.450); BG PO2 52.4 mmHg (75.0-100.0); BG SAMPLE SITE RIGHT RADIAL; BG TOTAL HEMOGLOBIN 12.6 g/dL (12.0-18.0); BG VENT MODE VAPOTHERM
[2022-10-15 10:35] LABS: PLATELET ESTIMATE NORMAL
[2022-10-15] MEDS: MONTELUKAST SODIUM 10MG TABLET PO SCH (17:23)
[2022-10-16] VITALS (12 sets, daily range): BP systolic 86–111; BP diastolic 54–74
[2022-10-16] MEDS: IPRATROPIUM/ALBUTEROL 0.5-3(2.5)MG/3ML NEB HHN SCH ×6 (00:22→20:20)
[2022-10-16] MEDS: DILTIAZEM HCL 60MG TABLET PO SCH ×3 (05:23→22:00)
[2022-10-16] MEDS: HYDROCODONE/ACETAMINOPHEN 10/325MG TABLET PO PRN ×2 (05:23→20:38)
[2022-10-16] MEDS: BUDESONIDE 0.5MG/2ML NEB HHN SCH ×2 (07:50→20:21)
[2022-10-16] MEDS: BLOOD SUGAR DIAGNOSTIC STRIP TEST SCH ×4 (07:54→20:39)
[2022-10-16] MEDS: INSULIN LISPRO 100 UNITS/ML SUBCUT SCH ×4 (07:58→20:23)
[2022-10-16 08:44] LABS: BG BASE EXCESS 5.3 mmol/L (-2.0-2.0); BG CARBOXYHEMOGLOBIN 0.8 % (0.5-1.5); BG DEOXYHEMOGLOBIN 11.2 % (0.0-5.0); BG FRACTION INSPIRED OXYGEN 60; BG HCO3 ACT 32.2 mmol/L (22.0-26.0); BG OXYGEN SATURATION 88.7 % (92.0-98.5); BG PH 7.362 (7.350-7.450); BG PO2 55.1 mmHg (75.0-100.0); BG SAMPLE SITE RIGHT RADIAL; BG TOTAL HEMOGLOBIN 12.1 g/dL (12.0-18.0); BG VENT MODE VAPOTHERM
[2022-10-16] MEDS: LISINOPRIL 10MG TABLET PO SCH ×2 (09:00→09:02)
[2022-10-16] MEDS: BUSPIRONE HCL 5MG TABLET PO SCH ×2 (09:02→20:37)
[2022-10-16] MEDS: MEGESTROL ACETATE 400 MG/10 ML UDC PO SCH (09:02)
[2022-10-16] MEDS: FAMOTIDINE 20MG TABLET PO SCH ×2 (09:02→20:37)
[2022-10-16] MEDS: METHYLPREDNISOLONE SOD SUCC 40 MG/ML VIAL IV SCH ×2 (09:02→18:00)
[2022-10-16] MEDS: SERTRALINE HCL 100MG TABLET PO SCH (09:02)
[2022-10-16] MEDS: GUAIFENESIN 600MG ER TABLET PO SCH ×2 (09:02→20:37)
[2022-10-16] MEDS: ENOXAPARIN 40MG/0.4ML SYR SUBCUT SCH (09:03)
[2022-10-16 17:57] LABS: CHLORIDE 104 mEq/L (98-107)
[2022-10-16] MEDS: MONTELUKAST SODIUM 10MG TABLET PO SCH (18:00)
[2022-10-16 21:23] LABS: HEMATOCRIT 36.1 % (36.0-48.0); HEMOGLOBIN 11.5 g/dL (12.0-16.0); MEAN CORPUSCULAR HEMOGLOBIN 31.4 pg (28.0-32.0); MEAN CORPUSCULAR VOLUME 98.1 fL (81.0-99.0); PLATELET 130 x1000/uL (130-400); RED BLOOD CELL COUNT 3.67 mill/uL (4.2-5.4); RED CELL DISTRIBUTION WIDTH 15.5 % (11.6-14.6)
[2022-10-16] MEDS ORDERED: SODIUM POLYSTYRENE SULFONATE 15 G/60 ML BOT PO NR (22:45)
[2022-10-16] MEDS ORDERED: SODIUM CHLORIDE 0.45% 150 ML IV ONE (22:45)
[2022-10-17] VITALS (11 sets, daily range): BP systolic 100–119; BP diastolic 56–78
[2022-10-17] MEDS: IPRATROPIUM/ALBUTEROL 0.5-3(2.5)MG/3ML NEB HHN SCH ×6 (00:05→20:22)
[2022-10-17] MEDS: HYDROCODONE/ACETAMINOPHEN 10/325MG TABLET PO PRN ×2 (04:36→13:58)
[2022-10-17 06:21] LABS: HEMATOCRIT 37.4 % (36.0-48.0); HEMOGLOBIN 11.9 g/dL (12.0-16.0); MEAN CORPUSCULAR VOLUME 97.4 fL (81.0-99.0); PLATELET 116 x1000/uL (130-400); RED BLOOD CELL COUNT 3.84 mill/uL (4.2-5.4); RED CELL DISTRIBUTION WIDTH 15.1 % (11.6-14.6)
[2022-10-17] MEDS: DILTIAZEM HCL 60MG TABLET PO SCH (06:54)
[2022-10-17] MEDS: BLOOD SUGAR DIAGNOSTIC STRIP TEST SCH ×4 (07:30→21:49)
[2022-10-17] MEDS: INSULIN LISPRO 100 UNITS/ML SUBCUT SCH ×4 (08:00→21:00)
[2022-10-17 08:04] LABS: CHLORIDE 106 mEq/L (98-107)
[2022-10-17] MEDS: BUDESONIDE 0.5MG/2ML NEB HHN SCH (08:50)
[2022-10-17 08:55] LABS: BG BASE EXCESS 12.8 mmol/L (-2.0-2.0); BG CARBOXYHEMOGLOBIN 0.5 % (0.5-1.5); BG DEOXYHEMOGLOBIN 7.6 % (0.0-5.0); BG FRACTION INSPIRED OXYGEN 60; BG HCO3 ACT 38.5 mmol/L (22.0-26.0); BG METHEMOGLOBIN 0.2 % (0.0-1.5); BG OXYGEN SATURATION 92.3 % (92.0-98.5); BG OXYHEMOGLOBIN 91.7 % (94.0-97.0); BG PCO2 53.8 mmHg (35.0-45.0); BG PH 7.472 (7.350-7.450); BG PO2 62.6 mmHg (75.0-100.0); BG SAMPLE SITE RIGHT RADIAL; BG TOTAL HEMOGLOBIN 12.4 g/dL (12.0-18.0); BG VENT MODE HIGH FLOW
[2022-10-17] MEDS: GUAIFENESIN 600MG ER TABLET PO SCH ×2 (09:56→21:49)
[2022-10-17] MEDS: FAMOTIDINE 20MG TABLET PO SCH ×2 (09:56→21:48)
[2022-10-17] MEDS: SERTRALINE HCL 100MG TABLET PO SCH (09:56)
[2022-10-17] MEDS: LISINOPRIL 10MG TABLET PO SCH (09:56)
[2022-10-17] MEDS: MEGESTROL ACETATE 400 MG/10 ML UDC PO SCH (09:56)
[2022-10-17] MEDS: METHYLPREDNISOLONE SOD SUCC 40 MG/ML VIAL IV SCH ×2 (09:57→17:32)
[2022-10-17] MEDS: ENOXAPARIN 40MG/0.4ML SYR SUBCUT SCH (09:57)
[2022-10-17] MEDS: GUAIFENESIN 200MG/10ML SUGAR FREE UDC PO PRN (09:59)
[2022-10-17] MEDS: BUSPIRONE HCL 5MG TABLET PO SCH (10:00)
[2022-10-17] MEDS: MONTELUKAST SODIUM 10MG TABLET PO SCH (17:32)
[2022-10-18] VITALS (11 sets, daily range): BP systolic 96–139; BP diastolic 41–117
[2022-10-18] MEDS: BUDESONIDE 0.5MG/2ML NEB HHN SCH ×3 (00:17→20:37)
[2022-10-18] MEDS: IPRATROPIUM/ALBUTEROL 0.5-3(2.5)MG/3ML NEB HHN SCH ×5 (00:17→20:37)
[2022-10-18] MEDS: HYDROCODONE/ACETAMINOPHEN 10/325MG TABLET PO PRN ×3 (02:51→17:25)
[2022-10-18 06:10] LABS: HEMATOCRIT. 35.8 % (36.0-48.0); HEMOGLOBIN. 11.5 g/dL (12.0-16.0); MEAN CORPUSCULAR HEMOGLOBIN 30.6 pg (28.0-32.0); MEAN CORPUSCULAR VOLUME 95.4 fL (81.0-99.0); MEAN PLATELET VOLUME 10.6 fl (7.4-10.4); PLATELET 123 x1000/uL (130-400); RED BLOOD CELL COUNT 3.75 mill/uL (4.2-5.4); RED CELL DISTRIBUTION WIDTH 15.3 % (11.6-14.6)
[2022-10-18] MEDS: BLOOD SUGAR DIAGNOSTIC STRIP TEST SCH ×5 (07:30→22:24)
[2022-10-18 07:54] LABS: CHLORIDE 106 mEq/L (98-107)
[2022-10-18] MEDS: INSULIN LISPRO 100 UNITS/ML SUBCUT SCH ×4 (08:00→22:28)
[2022-10-18 08:21] LABS: BG BASE EXCESS 11.1 mmol/L (-2.0-2.0); BG CARBOXYHEMOGLOBIN 0.9 % (0.5-1.5); BG DEOXYHEMOGLOBIN 4.4 % (0.0-5.0); BG FRACTION INSPIRED OXYGEN 80; BG HCO3 ACT 37.5 mmol/L (22.0-26.0); BG METHEMOGLOBIN 0.1 % (0.0-1.5); BG OXYGEN SATURATION 95.6 % (92.0-98.5); BG OXYHEMOGLOBIN 94.6 % (94.0-97.0); BG PCO2 55.9 mmHg (35.0-45.0); BG PH 7.444 (7.350-7.450); BG PO2 75.7 mmHg (75.0-100.0); BG SAMPLE SITE LEFT BRACHIAL; BG TOTAL HEMOGLOBIN 14.5 g/dL (12.0-18.0); BG VENT MODE HIGH FLOW
[2022-10-18] MEDS: GUAIFENESIN 200MG/10ML SUGAR FREE UDC PO PRN (08:43)
[2022-10-18] MEDS: MEGESTROL ACETATE 400 MG/10 ML UDC PO SCH (08:43)
[2022-10-18] MEDS: METHYLPREDNISOLONE SOD SUCC 40 MG/ML VIAL IV SCH ×2 (08:44→17:25)
[2022-10-18] MEDS: SERTRALINE HCL 100MG TABLET PO SCH (08:44)
[2022-10-18] MEDS: LISINOPRIL 10MG TABLET PO SCH (08:45)
[2022-10-18] MEDS: ENOXAPARIN 40MG/0.4ML SYR SUBCUT SCH (08:45)
[2022-10-18] MEDS: GUAIFENESIN 600MG ER TABLET PO SCH ×2 (09:04→22:22)
[2022-10-18] MEDS: DEXTROSE 5% WATER 1,000 ML IV SCH ×2 (11:08→22:23)
[2022-10-18 11:53] LABS: BG BASE EXCESS 11.5 mmol/L (-2.0-2.0); BG CARBOXYHEMOGLOBIN 0.6 % (0.5-1.5); BG DEOXYHEMOGLOBIN 11.5 % (0.0-5.0); BG FRACTION INSPIRED OXYGEN 70; BG HCO3 ACT 38.1 mmol/L (22.0-26.0); BG OXYGEN SATURATION 88.4 % (92.0-98.5); BG OXYHEMOGLOBIN 87.9 % (94.0-97.0); BG PCO2 59.2 mmHg (35.0-45.0); BG PH 7.426 (7.350-7.450); BG PO2 55.9 mmHg (75.0-100.0); BG SAMPLE SITE LEFT BRACHIAL; BG TOTAL HEMOGLOBIN 12.5 g/dL (12.0-18.0); BG VENT MODE HIGH FLOW
[2022-10-18 11:57] LABS: BG BASE EXCESS 15.2 mmol/L (-2.0-2.0); BG CARBOXYHEMOGLOBIN 0.5 % (0.5-1.5); BG DEOXYHEMOGLOBIN 19.2 % (0.0-5.0); BG FRACTION INSPIRED OXYGEN 70; BG HCO3 ACT 42.1 mmol/L (22.0-26.0); BG METHEMOGLOBIN 0.3 % (0.0-1.5); BG OXYGEN SATURATION 80.6 % (92.0-98.5); BG PCO2 62.2 mmHg (35.0-45.0); BG PH 7.448 (7.350-7.450); BG PO2 46.3 mmHg (75.0-100.0); BG SAMPLE SITE LEFT BRACHIAL; BG TOTAL HEMOGLOBIN 12.9 g/dL (12.0-18.0); BG VENT MODE HIGH FLOW
[2022-10-18] MEDS ORDERED: FUROSEMIDE 40MG/4ML VIAL IVP NR (14:00)
[2022-10-18] MEDS: MONTELUKAST SODIUM 10MG TABLET PO SCH (17:25)
[2022-10-18 18:38] LABS: PLATELET ESTIMATE DECREASED
[2022-10-18] MEDS: SILDENAFIL CITRATE 20MG TABLET PO SCH (22:23)
[2022-10-19] VITALS (12 sets, daily range): BP systolic 98–120; BP diastolic 54–96
[2022-10-19] MEDS: IPRATROPIUM/ALBUTEROL 0.5-3(2.5)MG/3ML NEB HHN SCH ×7 (00:30→23:40)
[2022-10-19] MEDS: HYDROCODONE/ACETAMINOPHEN 10/325MG TABLET PO PRN ×3 (05:15→17:47)
[2022-10-19] MEDS: SILDENAFIL CITRATE 20MG TABLET PO SCH ×3 (06:44→22:06)
[2022-10-19] MEDS: INSULIN LISPRO 100 UNITS/ML SUBCUT SCH ×4 (08:00→22:05)
[2022-10-19] MEDS: METHYLPREDNISOLONE SOD SUCC 40 MG/ML VIAL IV SCH ×2 (08:21→16:27)
[2022-10-19] MEDS: MEGESTROL ACETATE 400 MG/10 ML UDC PO SCH (08:21)
[2022-10-19] MEDS: GUAIFENESIN 600MG ER TABLET PO SCH ×2 (08:21→22:06)
[2022-10-19] MEDS: SERTRALINE HCL 100MG TABLET PO SCH (08:21)
[2022-10-19] MEDS: ENOXAPARIN 40MG/0.4ML SYR SUBCUT SCH (08:23)
[2022-10-19] MEDS: LISINOPRIL 10MG TABLET PO SCH (08:26)
[2022-10-19 08:41] LABS: BG BASE EXCESS 14.7 mmol/L (-2.0-2.0); BG CARBOXYHEMOGLOBIN 0.2 % (0.5-1.5); BG DEOXYHEMOGLOBIN 6.6 % (0.0-5.0); BG FRACTION INSPIRED OXYGEN 70; BG HCO3 ACT 40.2 mmol/L (22.0-26.0); BG METHEMOGLOBIN 0.3 % (0.0-1.5); BG OXYGEN SATURATION 93.4 % (92.0-98.5); BG OXYHEMOGLOBIN 92.9 % (94.0-97.0); BG PCO2 54.1 mmHg (35.0-45.0); BG PH 7.489 (7.350-7.450); BG PO2 66.3 mmHg (75.0-100.0); BG SAMPLE SITE RIGHT BRACHIAL; BG TOTAL HEMOGLOBIN 11.8 g/dL (12.0-18.0); BG VENT MODE HIGH FLOW
[2022-10-19 08:50] LABS: HEMATOCRIT. 36.1 % (36.0-48.0); HEMOGLOBIN. 11.5 g/dL (12.0-16.0); MEAN CORPUSCULAR HEMOGLOBIN 30.6 pg (28.0-32.0); MEAN CORPUSCULAR VOLUME 96.2 fL (81.0-99.0); MEAN PLATELET VOLUME 10.9 fl (7.4-10.4); PLATELET 119 x1000/uL (130-400); RED BLOOD CELL COUNT 3.76 mill/uL (4.2-5.4); RED CELL DISTRIBUTION WIDTH 15.1 % (11.6-14.6)
[2022-10-19 09:24] LABS: CHLORIDE 99 mEq/L (98-107)
[2022-10-19] MEDS ORDERED: FUROSEMIDE 40MG/4ML VIAL IVP NR (10:00)
[2022-10-19] MEDS: DEXTROSE 5% WATER 1,000 ML IV SCH (10:23)
[2022-10-19] MEDS: BLOOD SUGAR DIAGNOSTIC STRIP TEST SCH ×3 (12:31→21:00)
[2022-10-19] MEDS: BUDESONIDE 0.5MG/2ML NEB HHN SCH ×2 (12:44→19:50)
[2022-10-19 12:46] LABS: PLATELET ESTIMATE DECREASED
[2022-10-19] MEDS ORDERED: ACETAZOLAMIDE 250MG TABLET PO NR (15:30)
[2022-10-19] MEDS: MONTELUKAST SODIUM 10MG TABLET PO SCH (16:27)
[2022-10-20] VITALS (12 sets, daily range): BP systolic 95–139; BP diastolic 53–88
[2022-10-20] MEDS: DEXTROSE 5% WATER 1,000 ML IV SCH (01:33)
[2022-10-20] MEDS: IPRATROPIUM/ALBUTEROL 0.5-3(2.5)MG/3ML NEB HHN SCH ×5 (03:49→21:10)
[2022-10-20] MEDS: HYDROCODONE/ACETAMINOPHEN 10/325MG TABLET PO PRN ×3 (05:55→20:52)
[2022-10-20] MEDS: SILDENAFIL CITRATE 20MG TABLET PO SCH ×3 (05:55→21:57)
[2022-10-20] MEDS: INSULIN LISPRO 100 UNITS/ML SUBCUT SCH ×4 (08:00→20:26)
[2022-10-20] MEDS: BLOOD SUGAR DIAGNOSTIC STRIP TEST SCH ×4 (08:01→20:22)
[2022-10-20] MEDS: BUDESONIDE 0.5MG/2ML NEB HHN SCH ×2 (08:05→21:10)
[2022-10-20 08:15] LABS: BG BASE EXCESS 12.5 mmol/L (-2.0-2.0); BG CARBOXYHEMOGLOBIN 0.7 % (0.5-1.5); BG DEOXYHEMOGLOBIN 8.7 % (0.0-5.0); BG FRACTION INSPIRED OXYGEN 60; BG HCO3 ACT 37.2 mmol/L (22.0-26.0); BG METHEMOGLOBIN 0.3 % (0.0-1.5); BG OXYGEN SATURATION 91.2 % (92.0-98.5); BG OXYHEMOGLOBIN 90.3 % (94.0-97.0); BG PCO2 48.4 mmHg (35.0-45.0); BG PH 7.504 (7.350-7.450); BG PO2 58.6 mmHg (75.0-100.0); BG SAMPLE SITE LEFT RADIAL; BG TOTAL HEMOGLOBIN 11.8 g/dL (12.0-18.0); BG VENT MODE VAPOTHERM
[2022-10-20] MEDS: GUAIFENESIN 600MG ER TABLET PO SCH ×2 (08:38→20:36)
[2022-10-20] MEDS: MEGESTROL ACETATE 400 MG/10 ML UDC PO SCH (08:38)
[2022-10-20] MEDS: METHYLPREDNISOLONE SOD SUCC 40 MG/ML VIAL IV SCH (08:38)
[2022-10-20] MEDS: SERTRALINE HCL 100MG TABLET PO SCH (08:38)
[2022-10-20] MEDS: LISINOPRIL 10MG TABLET PO SCH (08:39)
[2022-10-20] MEDS: ENOXAPARIN 40MG/0.4ML SYR SUBCUT SCH (08:40)
[2022-10-20 09:03] LABS: HEMOGLOBIN. 11.5 g/dL (12.0-16.0); MEAN CORPUSCULAR VOLUME 94.8 fL (81.0-99.0); MEAN PLATELET VOLUME 10.6 fl (7.4-10.4); PLATELET 117 x1000/uL (130-400); RED CELL DISTRIBUTION WIDTH 14.9 % (11.6-14.6)
[2022-10-20 09:34] LABS: CHLORIDE 95 mEq/L (98-107)
[2022-10-20 09:38] LABS: PHOSPHORUS 2.6 mg/dL (2.5-4.9)
[2022-10-20] MEDS: DEXTROSE 50% WATER 50ML SYRINGE IV PRN (10:11)
[2022-10-20] MEDS ORDERED: LIDOCAINE HCL 1% 10 MG/ML 10ML VIAL ONE (13:38)
[2022-10-20 14:39] LABS: PLATELET ESTIMATE SLIGHTLY DECREASED
[2022-10-20] MEDS: MONTELUKAST SODIUM 10MG TABLET PO SCH (17:26)
[2022-10-20] MEDS: GUAIFENESIN 200MG/10ML SUGAR FREE UDC PO PRN (20:53)
[2022-10-21] VITALS (23 sets, daily range): BP systolic 65–121; BP diastolic 30–70
[2022-10-21] MEDS: DEXTROSE 5% WATER 1,000 ML IV SCH (00:12)
[2022-10-21] MEDS: IPRATROPIUM/ALBUTEROL 0.5-3(2.5)MG/3ML NEB HHN SCH ×6 (00:38→20:29)
[2022-10-21] MEDS: HYDROCODONE/ACETAMINOPHEN 10/325MG TABLET PO PRN ×2 (04:20→19:57)
[2022-10-21] MEDS: SILDENAFIL CITRATE 20MG TABLET PO SCH ×2 (05:15→13:32)
[2022-10-21 06:09] LABS: HEMOGLOBIN 9.7 g/dL (12.0-16.0); MEAN CORPUSCULAR HEMOGLOBIN 30.7 pg (28.0-32.0); MEAN CORPUSCULAR VOLUME 94.6 fL (81.0-99.0); PLATELET 101 x1000/uL (130-400); RED BLOOD CELL COUNT 3.17 mill/uL (4.2-5.4)
[2022-10-21 06:15] LABS: CHLORIDE 94 mEq/L (98-107)
[2022-10-21] MEDS: BLOOD SUGAR DIAGNOSTIC STRIP TEST SCH ×4 (07:30→20:27)
[2022-10-21] MEDS: BUDESONIDE 0.5MG/2ML NEB HHN SCH ×2 (08:46→20:29)
[2022-10-21] MEDS: GUAIFENESIN 600MG ER TABLET PO SCH ×2 (09:46→20:36)
[2022-10-21] MEDS: LISINOPRIL 10MG TABLET PO SCH (09:46)
[2022-10-21] MEDS: SERTRALINE HCL 100MG TABLET PO SCH (09:46)
[2022-10-21] MEDS: INSULIN LISPRO 100 UNITS/ML SUBCUT SCH ×4 (09:47→20:27)
[2022-10-21] MEDS: ENOXAPARIN 30MG/0.3ML SYR SUBCUT SCH (09:47)
[2022-10-21 09:49] LABS: BG BASE EXCESS 11.9 mmol/L (-2.0-2.0); BG CARBOXYHEMOGLOBIN 0.6 % (0.5-1.5); BG FRACTION INSPIRED OXYGEN 80; BG HCO3 ACT 37.8 mmol/L (22.0-26.0); BG OXYHEMOGLOBIN 93.4 % (94.0-97.0); BG PCO2 55.7 mmHg (35.0-45.0); BG PH 7.449 (7.350-7.450); BG PO2 69.7 mmHg (75.0-100.0); BG SAMPLE SITE LEFT BRACHIAL; BG VENT MODE VAPOTHERM
[2022-10-21] MEDS: DEXT 5%/0.9% NACL 1,000 ML IV SCH (10:48)
[2022-10-21] MEDS ORDERED: SODIUM CHLORIDE 0.9% 250 ML IV ONE (11:03)
[2022-10-21] MEDS ORDERED: METHYLPREDNISOLONE SOD SUCC 40 MG/ML VIAL IV SCH (12:00)
[2022-10-21] MEDS ORDERED: FUROSEMIDE 40MG/4ML VIAL IVP NR (12:45)
[2022-10-21] MEDS ORDERED: POTASSIUM CHLORIDE 20MEQ/PACKET PO NR (12:45)
[2022-10-21] MEDS: MONTELUKAST SODIUM 10MG TABLET PO SCH (17:56)
[2022-10-21] MEDS: MIDODRINE HCL 5MG TABLET PO SCH (17:57)
[2022-10-21] MEDS ORDERED: NALOXONE HCL 0.4MG/ML VIAL IV PRN (19:15)
[2022-10-22] VITALS (12 sets, daily range): BP systolic 97–111; BP diastolic 52–73
[2022-10-22] MEDS: IPRATROPIUM/ALBUTEROL 0.5-3(2.5)MG/3ML NEB HHN SCH ×7 (00:40→23:33)
[2022-10-22] MEDS: DEXT 5%/0.9% NACL 1,000 ML IV SCH (03:14)
[2022-10-22] MEDS: HYDROCODONE/ACETAMINOPHEN 10/325MG TABLET PO PRN ×3 (03:31→21:01)
[2022-10-22 04:52] LABS: CHLORIDE 99 mEq/L (98-107)
[2022-10-22 05:51] LABS: HEMATOCRIT. 27.9 % (36.0-48.0); HEMOGLOBIN. 8.9 g/dL (12.0-16.0); MEAN CORPUSCULAR HEMOGLOBIN 30.6 pg (28.0-32.0); MEAN CORPUSCULAR VOLUME 95.4 fL (81.0-99.0); MEAN PLATELET VOLUME 11.4 fl (7.4-10.4); PLATELET 99 x1000/uL (130-400); RED BLOOD CELL COUNT 2.93 mill/uL (4.2-5.4); RED CELL DISTRIBUTION WIDTH 15.3 % (11.6-14.6)
[2022-10-22] MEDS: INSULIN LISPRO 100 UNITS/ML SUBCUT SCH ×4 (07:55→21:00)
[2022-10-22] MEDS: BLOOD SUGAR DIAGNOSTIC STRIP TEST SCH ×4 (07:55→21:01)
[2022-10-22] MEDS: GUAIFENESIN 600MG ER TABLET PO SCH ×2 (08:22→21:01)
[2022-10-22] MEDS: SERTRALINE HCL 100MG TABLET PO SCH (08:22)
[2022-10-22] MEDS: FUROSEMIDE 40MG/4ML VIAL IVP SCH (08:22)
[2022-10-22] MEDS: MIDODRINE HCL 5MG TABLET PO SCH ×3 (08:23→17:36)
[2022-10-22] MEDS: POTASSIUM CHLORIDE 20MEQ/PACKET PO SCH (08:31)
[2022-10-22] MEDS: LISINOPRIL 10MG TABLET PO SCH ×2 (08:31→08:48)
[2022-10-22] MEDS: ENOXAPARIN 30MG/0.3ML SYR SUBCUT SCH (08:50)
[2022-10-22] MEDS: BUDESONIDE 0.5MG/2ML NEB HHN SCH ×2 (08:56→19:57)
[2022-10-22] MEDS ORDERED: MIDO5TAB4 PO (15:35)
[2022-10-22] MEDS ORDERED: LISI10TA26 PO (15:35)
[2022-10-22] MEDS ORDERED: MONT10TA21 PO (15:35)
[2022-10-22] MEDS ORDERED: IPRA3AMP9 HHN (15:35)
[2022-10-22] MEDS ORDERED: SERT100T PO (15:35)
[2022-10-22] MEDS ORDERED: DILT60TA3 PO (15:35)
[2022-10-22] MEDS: MONTELUKAST SODIUM 10MG TABLET PO SCH (17:36)
[2022-10-22 18:19] LABS: PLATELET ESTIMATE DECREASED
[2022-10-23] VITALS (9 sets, daily range): BP systolic 92–112; BP diastolic 46–84
[2022-10-23] MEDS: IPRATROPIUM/ALBUTEROL 0.5-3(2.5)MG/3ML NEB HHN SCH ×4 (03:49→15:57)
[2022-10-23] MEDS: BUDESONIDE 0.5MG/2ML NEB HHN SCH (07:45)
[2022-10-23 07:58] LABS: CHLORIDE 102 mEq/L (98-107); HEMATOCRIT 28.4 % (36.0-48.0); HEMOGLOBIN 9.2 g/dL (12.0-16.0); MEAN CORPUSCULAR HEMOGLOBIN 31.1 pg (28.0-32.0); MEAN CORPUSCULAR VOLUME 95.7 fL (81.0-99.0); PLATELET 134 x1000/uL (130-400); RED BLOOD CELL COUNT 2.96 mill/uL (4.2-5.4); RED CELL DISTRIBUTION WIDTH 14.9 % (11.6-14.6)
[2022-10-23] MEDS: INSULIN LISPRO 100 UNITS/ML SUBCUT SCH ×3 (08:00→17:35)
[2022-10-23] MEDS: BLOOD SUGAR DIAGNOSTIC STRIP TEST SCH ×3 (08:24→17:34)
[2022-10-23] MEDS: ENOXAPARIN 30MG/0.3ML SYR SUBCUT SCH (09:01)
[2022-10-23] MEDS: FUROSEMIDE 40MG/4ML VIAL IVP SCH (09:02)
[2022-10-23] MEDS: POTASSIUM CHLORIDE 20MEQ/PACKET PO SCH (09:02)
[2022-10-23] MEDS: GUAIFENESIN 600MG ER TABLET PO SCH (09:02)
[2022-10-23] MEDS: MIDODRINE HCL 5MG TABLET PO SCH ×4 (09:02→17:17)
[2022-10-23] MEDS: LISINOPRIL 10MG TABLET PO SCH (09:03)
[2022-10-23] MEDS: SERTRALINE HCL 100MG TABLET PO SCH (09:03)
[2022-10-23 09:08] LABS: BG BASE EXCESS 9.9 mmol/L (-2.0-2.0); BG CARBOXYHEMOGLOBIN 0.8 % (0.5-1.5); BG DEOXYHEMOGLOBIN 6.6 % (0.0-5.0); BG FRACTION INSPIRED OXYGEN 80; BG METHEMOGLOBIN 0.3 % (0.0-1.5); BG OXYGEN SATURATION 93.3 % (92.0-98.5); BG OXYHEMOGLOBIN 92.3 % (94.0-97.0); BG PCO2 44.1 mmHg (35.0-45.0); BG PH 7.505 (7.350-7.450); BG PO2 67.6 mmHg (75.0-100.0); BG SAMPLE SITE RIGHT RADIAL; BG TOTAL HEMOGLOBIN 10.6 g/dL (12.0-18.0); BG VENT MODE HIGH FLOW
[2022-10-23] MEDS: HYDROCODONE/ACETAMINOPHEN 10/325MG TABLET PO PRN ×2 (09:15→15:03)
[2022-10-23] MEDS: MONTELUKAST SODIUM 10MG TABLET PO SCH (17:29)
[2022-10-23] MEDS ORDERED: SODIUM CHLORIDE 0.9% 1000ML BAG (SEPSIS BOLUS) IV NR (17:30)
[2022-10-23] MEDS: DEXTROSE 50% WATER 50ML SYRINGE IV PRN (17:37)
== END 2022-10-24 03:02 | DRG 133 ==
LOC: ER 04:23 → ENRESERV 23:46 → 3WST 10-04 00:47 → 5EST 10-07 09:30 → CVICU 10-07 15:00 → 5EST 10-12 21:10
PROVIDERS: ADMIT Internal Medicine; ATTEND Internal Medicine
PROC: 5A09357 Assistance with Respiratory Ventilation, Less than 24 Consecutive Hours, Continuous Positive Airway Pressure (ICD-10-PCS; 2022-10-03)
PROC: 5A09357 Assistance with Respiratory Ventilation, Less than 24 Consecutive Hours, Continuous Positive Airway Pressure (ICD-10-PCS; 2022-10-07)
PROC: 5A1935Z Respiratory Ventilation, Less than 24 Consecutive Hours (ICD-10-PCS; principal; 2022-10-08)
PROC: 5A09457 Assistance with Respiratory Ventilation, 24-96 Consecutive Hours, Continuous Positive Airway Pressure (ICD-10-PCS; 2022-10-08)
PROC: 5A0955A Assistance with Respiratory Ventilation, Greater than 96 Consecutive Hours, High Flow/Velocity Cannula (ICD-10-PCS; 2022-10-11)
PROC: 5A12012 Performance of Cardiac Output, Single, Manual (ICD-10-PCS; 2022-10-13)
PROC: 05HY33Z Insertion of Infusion Device into Upper Vein, Percutaneous Approach (ICD-10-PCS; 2022-10-20)
DX: J96.01 Acute respiratory failure with hypoxia (principal); E43 Unspecified severe protein-calorie malnutrition; I50.33 Acute on chronic diastolic (congestive) heart failure; E22.2 Syndrome of inappropriate secretion of antidiuretic hormone; N17.9 Acute kidney failure, unspecified; E87.0 Hyperosmolality and hypernatremia; D69.6 Thrombocytopenia, unspecified; E11.649 Type 2 diabetes mellitus with hypoglycemia without coma; J43.9 Emphysema, unspecified; Z66 Do not resuscitate; J84.9 Interstitial pulmonary disease, unspecified; I27.21 Secondary pulmonary arterial hypertension; J96.02 Acute respiratory failure with hypercapnia; E88.09 Other disorders of plasma-protein metabolism, not elsewhere classified; I11.0 Hypertensive heart disease with heart failure; G47.00 Insomnia, unspecified; E87.6 Hypokalemia; J10.1 Influenza due to other identified influenza virus with other respiratory manifestations; N39.0 Urinary tract infection, site not specified; I27.81 Cor pulmonale (chronic); M19.90 Unspecified osteoarthritis, unspecified site; G47.33 Obstructive sleep apnea (adult) (pediatric); Z20.822 Contact with and (suspected) exposure to COVID-19; E78.5 Hyperlipidemia, unspecified; F41.1 Generalized anxiety disorder; Z99.81 Dependence on supplemental oxygen; E11.9 Type 2 diabetes mellitus without complications; E87.5 Hyperkalemia; I35.1 Nonrheumatic aortic (valve) insufficiency; D64.9 Anemia, unspecified; K59.09 Other constipation; I25.10 Atherosclerotic heart disease of native coronary artery without angina pectoris; E87.3 Alkalosis; F32.A Depression, unspecified; G89.29 Other chronic pain; I07.1 Rheumatic tricuspid insufficiency; Z68.1 Body mass index [BMI] 19.9 or less, adult; Z79.52 Long term (current) use of systemic steroids; Z79.899 Other long term (current) drug therapy; Z79.51 Long term (current) use of inhaled steroids; Z88.6 Allergy status to analgesic agent; T50.1X5A Adverse effect of loop [high-ceiling] diuretics, initial encounter; R32 Unspecified urinary incontinence
CPT/HCPCS: 36415; 36573; 36600; 71045; 71275; 80048; 80053; 80305; 80320; 81003; 82375; 82570; 82785; 82805; 82962; 83036; 83605; 83735; 83880; 83930; 83935; 84100; 84145; 84300; 84443; 84484; 84550; 85025; 85027; 87426; 87804; 92610; 93005; 93306; 93970; 94640; 94644; 94660; 99291; C1725; C1769; C1893; J0360; J0696; J1650; J1815; J1940; J2060; J2270; J2405; J2920; J2930; J3105; J3475; J3480; J3490; J7042; J7050; J7060; J7070; J7512; J7626; Q9967